=== PATIENT | male | born 1990 | race Caucasian/White ===

== ENCOUNTER 2017-05-20 22:44 | Emergency (ER) | payer OTHER ==
[2017-05-20 23:06] VITALS: BP 129/62; PULSE 79; RESP 20; TEMP 97.1
[2017-05-20] MEDS ORDERED: PROPARACAINE 0.5% OPHTH DROPS 15 ML BTL ONE (23:15)
[2017-05-20] MEDS ORDERED: PROPARACAINE 0.5% OPHTH DROPS 15 ML BTL LEFT EYE STA (23:23)
[2017-05-20] MEDS ORDERED: DIPH,PERTUS(ACELL)TETVAC-LF 0.5 ML VIAL IM ONE (23:24)
[2017-05-20] MEDS ORDERED: TOBRAMYCIN 0.3% OPHTH DROPS 5 ML BTL LEFT EYE STA (23:26)
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
== END 2017-05-20 23:59 | disposition home or self-care (01) ==
LOC: EC 22:44
DX: S05.02XA Injury of conjunctiva and corneal abrasion without foreign body, left eye, initial encounter (principal); F17.200 Nicotine dependence, unspecified, uncomplicated; Z23 Encounter for immunization; Z88.0 Allergy status to penicillin; W51.XXXA Accidental striking against or bumped into by another person, initial encounter
CPT/HCPCS: 90471; 90715; 99283

== ENCOUNTER 2017-07-15 23:51 | Emergency (ER) | payer OTHER ==
[2017-07-16] VITALS: BP 107/61; PULSE 58; RESP 16; TEMP 97.7
[2017-07-16] MEDS ORDERED: PROPARACAINE 0.5% OPHTH DROPS 15 ML BTL BOTH EYES STA (00:46)
[2017-07-16] MEDS ORDERED: TOBRAMYCIN 0.3% OPHTH DROPS 5 ML BTL LEFT EYE STA (01:04)
--- NOTE | 2017-07-16 01:07 | ED ---
ENT HPI - General Chief complaint: ENT Stated complaint: Eye Problem Time Seen by Provider: 07/16/17 00:28 Source: patient, RN notes reviewed, old records reviewed, Caregiver Mode of arrival: ambulatory Limitations: no limitations - History of Present Illness Initial comments: 19 year old male with one day of left eye pain and irriation after scratching eye on pillow case while in bed. Patient reports that vision is intact, does not wear contacts or glasses. History of corneal abrasions before. Denies any foreign body to eye. - Related Data Home Medications Medication Instructions Recorded Confirmed No Known Home Medications [No 05/01/16 05/01/16 Known Home Medications] Allergies Allergy/AdvReac Type Severity Reaction Status Date / Time amoxicillin Allergy Unknown Verified 07/16/17 00:00 Penicillins Allergy Unknown Verified 07/16/17 00:00 Review of Systems ROS Statement: Those systems with pertinent positive or pertinent negative responses have been documented in the HPI. ROS Other: All systems not noted in ROS Statement are negative. Constitutional: Denies: fever, chills Eyes: Reports: eye pain (left) ENT: Denies: ear pain, throat pain Respiratory: Denies: cough Cardiovascular: Denies: chest pain Endocrine: Denies: fatigue Gastrointestinal: Denies: abdominal pain Genitourinary: Denies: urgency Musculoskeletal: Reports: as per HPI. Denies: back pain Skin: Denies: rash Past Medical History Past Medical History: Asthma History of Any Multi-Drug Resistant Organisms: None Reported Past Surgical History: No Surgical Hx Reported Past Psychological History: Bipolar Smoking Status: Current every day smoker Past Alcohol Use History: Occasional Past Drug Use History: None Reported General Exam - General Exam Comments Initial Comments: Well appearing 26 year old male, no distress. Limitations: no limitations General appearance: alert, in no apparent distress Head exam: Present: atraumatic, normocephalic, normal inspection Eye exam: Present: normal appearance, PERRL, EOMI, conjunctival injection (left eye infection, and evidence of corneal abrasion at 7 oclock on flourescein eye exam. ). Absent: scleral icterus, periorbital swelling ENT exam: Present: normal exam, mucous membranes moist Neck exam: Present: normal inspection. Absent: tenderness, meningismus, lymphadenopathy Respiratory exam: Present: normal lung sounds bilaterally. Absent: respiratory distress, wheezes, rales, rhonchi, stridor Cardiovascular Exam: Present: regular rate, normal rhythm, normal heart sounds. Absent: systolic murmur, diastolic murmur, rubs, gallop, clicks GI/Abdominal exam: Present: soft, normal bowel sounds. Absent: distended, tenderness, guarding, rebound, rigid Back exam: Present: normal inspection Neurological exam: Present: alert, oriented X3, CN II-XII intact Course Vital Signs 07/15/17 23:57 Temperature 97.7 F Pulse Rate 58 L Respiratory 16 Rate Blood Pressure 107/61 O2 Sat by Pulse 97 Oximetry Medical Decision Making - Medical Decision Making Pleasant 26 year old male with corneal abrasion at left eye at 7 oclock position. Patient vision acuity intact. Patient started on tobramycin drops and advised to follow up with optho if symptoms perisist. REturn parameters discussed. Disposition Clinical Impression: Injury of conjunctiva and corneal abrasion of left eye w/o FB Disposition: HOME SELF-CARE Condition: Good Instructions: Corneal Abrasion (ED) Additional Instructions: Apply eyedrops to eye every 4 hours for the next 3 day. Return to emergency department if any alarming signs or symptoms occur. Follow up electro winning operator symptoms continue persist after one to 2 days. Referrals: None,Stated [Primary Care Provider] - 1-2 days Ina Tamez MD [STAFF PHYSICIAN] - 1-2 days Abundio Be MD [STAFF PHYSICIAN] - 1-2 days Time of Disposition: 01:05
== END 2017-07-16 01:23 | disposition home or self-care (01) ==
LOC: EC 23:51
DX: S05.02XA Injury of conjunctiva and corneal abrasion without foreign body, left eye, initial encounter (principal); F17.200 Nicotine dependence, unspecified, uncomplicated; Z88.0 Allergy status to penicillin; X58.XXXA Exposure to other specified factors, initial encounter
CPT/HCPCS: 99283

== ENCOUNTER 2020-03-01 14:00 | Inpatient (IN) | payer MEDICAID, OTHER ==
--- NOTE | 2020-03-01 15:42 | ED ---
General Adult HPI <Richard Martinez - Last Filed: 03/01/20 20:17> - General Source: patient, RN notes reviewed, old records reviewed Mode of arrival: ambulatory Limitations: no limitations <Kwadwo Renee - Last Filed: 03/01/20 22:04> - General Chief complaint: Psychiatric Symptoms Stated complaint: Mental Health Time Seen by Provider: 03/01/20 14:12 - History of Present Illness Initial comments: 29-year-old male patient presents to ED for evaluation of mental health. Patient port that he has been hearing voices which are singing things to him. Denies any suicidal ideations at this time. Denies any homicidal ideations. States that he has not anything hurt himself. Denies any other physical com plaints. States that he has been on psychiatric medications in the past. Declines if he is taking any at this time. (Kwadwo Renee) - Related Data Home Medications Medication Instructions Recorded Confirmed No Known Home Medications 05/01/16 03/01/20 Allergies Allergy/AdvReac Type Severity Reaction Status Date / Time amoxicillin Allergy Unknown Verified 03/01/20 20:37 Penicillins Allergy Unknown Verified 03/01/20 20:37 tomato Allergy Unknown Verified 03/01/20 20:37 Review of Systems ROS Other: All systems not noted in ROS Statement are negative. <JuanRichard - Last Filed: 03/01/20 20:17> ROS Other: All systems not noted in ROS Statement are negative. <Kwadwo Renee - Last Filed: 03/01/20 22:04> ROS Statement: Those systems with pertinent positive or pertinent negative responses have been documented in the HPI. Past Medical History Past Medical History: Asthma History of Any Multi-Drug Resistant Organisms: None Reported Past Surgical History: No Surgical Hx Reported Past Psychological History: Bipolar Smoking Status: Current every day smoker Past Alcohol Use History: Occasional Past Drug Use History: None Reported <Kwadwo Renee - Last Filed: 03/01/20 22:04> General Exam Limitations: no limitations <Kwadwo Renee - Last Filed: 03/01/20 22:04> - General Exam Comments Initial Comments: Constitutional: NAD, AOX3, Pt has pleasant affect. HEENT: NC/AT, trachea midline, neck supple, no lymphadenopathy. Posterior phary nx non erythematous, without exudates. External ears appear normal, without discharge. Mucous membranes moist. Eyes PERRLA, EOM intact. There is no scleral icterus. No pallor noted. Cardiopulmonary: RRR, no murmurs, rubs or gallops, no JVD noted. Lungs CTAB in anterior and posterior wesley. No peripheral edema. Abdominal exam: Abdomen soft and non-distended. Abdomen non-tender to palpation in all 4 quadrants. Bowel sounds active in LLQ. No hepatosplenomegaly. No ecchymosis Neuro: CN II-XII intact. No nuchal rigidity. No raccon eyes, no hull sign, no hemotympanum. No cervical spinal tenderness. MSK: Full active ROM in upper and lower extremities, 5/5 stregnth. (Kwadwo Renee) Course Vital Signs 03/01/20 03/01/20 14:06 21:54 Temperature 98.3 F 98.3 F Pulse Rate 77 55 L Respiratory 16 18 Rate Blood Pressure 122/80 105/60 O2 Sat by Pulse 95 96 Oximetry Medical Decision Making <Richard Martinez - Last Filed: 03/01/20 20:17> <Kwadwo Renee - Last Filed: 03/01/20 22:04> - Medical Decision Making Patient was seen by mental health services with plans for admission. Patient did try to escape from the emergency department. Patient reevaluated by myself, Dr. Martinez. Patient admits to having hallucinations and being off his medications. Positive clinical certificate completed. Patient appears paranoid and is receptive to receiving medications at this time. (Richard Martinez) 29-year-old male patient visiting for psychiatric evaluation. They felt some stable, afebrile. Physical exam didn't display acute pathology. Patient did try to elope from urgency department. Patient did suffer a small abrasion to his nose and knee hit the palmar aspect of his hand on the wall. Patient reports he has some very mild pain on the medial aspect of the hand. No snuffbox tenderness. Full active range of motion. Plain film was negative. Patient tetanus was updated. Patient will be admitted for psychiatric evaluation. Case discussed with Dr. Martinez (Kwadwo Renee) - Lab Data Lab Results 03/01/20 Range/Units 16:45 Urine Opiates Screen Not Detected (NotDetected) Ur Oxycodone Screen Not Detected (NotDetected) Urine Methadone Screen Not Detected (NotDetected) Ur Propoxyphene Screen Not Detected (NotDetected) Ur Barbiturates Screen Not Detected (NotDetected) U Tricyclic Antidepress Not Detected (NotDetected) Ur Phencyclidine Scrn Not Detected (NotDetected) Ur Amphetamines Screen Not Detected (NotDetected) U Methamphetamines Scrn Not Detected (NotDetected) U Benzodiazepines Scrn Not Detected (NotDetected) Urine Cocaine Screen Not Detected (NotDetected) U Marijuana (THC) Screen Detected H (NotDetected) Disposition <Richard Martinez - Last Filed: 03/01/20 20:17> Is patient prescribed a controlled substance at d/c from ED?: No <Kwadwo Renee - Last Filed: 03/01/20 22:04> Clinical Impression: Psychiatric disorder Disposition: ADMITTED IP TO THIS HOSP Condition: Serious
[2020-03-01 17:17] LABS: Amphetamine Screen,Urine Not Detected (NotDetected); Barbiturate Screen,Urine Not Detected (NotDetected); Benzodiazepines Screen,Urine Not Detected (NotDetected); Cocaine Screen,Urine Not Detected (NotDetected); Methadone Screen, Urine Not Detected (NotDetected); Opiate Screen,Urine Not Detected (NotDetected); Oxycodone Screen, Urine Not Detected (NotDetected); Phencyclidine Screen,Urine Not Detected (NotDetected); Tricyclic Antidepressant,Urine Not Detected (NotDetected); Urn Cannabinoid Scrn Detected (NotDetected)
[2020-03-01] MEDS ORDERED: LORazepam 2 MG/ML INJ IM STA (20:14)
[2020-03-01] MEDS ORDERED: DIPH,PERTUS(ACELL)TETVAC-LF 0.5 ML VIAL IM ONE (20:53)
--- NOTE | 2020-03-01 21:13 | XR ---
EXAMINATION TYPE: XR hand complete LT DATE OF EXAM: 03/01/2020 COMPARISON: NONE HISTORY: Fifth metacarpal pain TECHNIQUE: 3 views FINDINGS: I see no fracture nor dislocation. Joint spaces are normal. There are no pathologic calcifi cations. IMPRESSION: Negative left hand exam. No evidence of fifth metacarpal fracture.
[2020-03-02] MEDS ORDERED: MAG HYDROX/AL HYDROX/SIMETH 30 ML CUP PO PRN (01:58)
[2020-03-02] MEDS ORDERED: ACETAMINOPHEN TAB 325 MG TAB PO PRN (01:58)
[2020-03-02] MEDS ORDERED: MAGNESIUM HYDROXIDE 2,400 MG/10 ML CUP PO PRN (01:58)
[2020-03-02] MEDS ORDERED: ZIPRASIDONE 20 MG VIAL IM PRN (01:58)
--- NOTE | 2020-03-02 02:45 | P.PN ---
Progress Note - Text Progress Note Date: 03/02/20 patient was inappropriate for evaluation at this time , due to being medicated and sleeping at this time please notify sound physicians when patient is appropriate for evaluation
[2020-03-02] MEDS: NICOTINE 14MG/24HR PATCH TRANSDERM SCH (08:43)
--- NOTE | 2020-03-02 12:17 | P.HP ---
Psychiatric H&P - . H&P Date: 03/02/20 History & Physical: Allergies Allergy/AdvReac Type Severity Reaction Status Date / Time amoxicillin Allergy Unknown Verified 03/01/20 20:37 Penicillins Allergy Unknown Verified 03/01/20 20:37 tomato Allergy Unknown Verified 03/01/20 20:37 Vital Signs Temp 97.7 F 03/02/20 00:15 Pulse 56 L 03/02/20 00:15 Resp 16 03/02/20 00:15 BP 117/70 03/02/20 00:15 Pulse Ox 96 03/01/20 21:54 Intake & Output 03/01/20 03/02/20 03/02/20 18:59 06:59 18:59 Weight 58.967 kg Laboratory Last Values Urine Opiates Screen Not Detected (NotDetected) 03/01/20 16:45 Ur Oxycodone Screen Not Detected (NotDetected) 03/01/20 16:45 Urine Methadone Screen Not Detected (NotDetected) 03/01/20 16:45 Ur Propoxyphene Screen Not Detected (NotDetected) 03/01/20 16:45 Ur Barbiturates Screen Not Detected (NotDetected) 03/01/20 16:45 U Tricyclic Antidepress Not Detected (NotDetected) 03/01/20 16:45 Ur Phencyclidine Scrn Not Detected (NotDetected) 03/01/20 16:45 Ur Amphetamines Screen Not Detected (NotDetected) 03/01/20 16:45 U Methamphetamines Scrn Not Detected (NotDetected) 03/01/20 16:45 U Benzodiazepines Scrn Not Detected (NotDetected) 03/01/20 16:45 Urine Cocaine Screen Not Detected (NotDetected) 03/01/20 16:45 U Marijuana (THC) Screen Detected (NotDetected) H 03/01/20 16:45 03/02/20 12:10 IDENTIFYING DATA: Patient is a 29-year-old male currently lives in a trailer in his uncle's house and has 2 boys and works at a car [employer]. HPI: Patient presented to the hospital yesterday with complaints of auditory hallucinations claiming that things were singing to him as per ER report and also claimed that he has been off his medications. Patient allegedly tried to escape from the ER. His UDS was positive for marijuana. Patient was petitioned by EPS nurse stating that patient was delusional and having auditory or visual hallucinations and also a harm to self and others. Patient was seen today by radio script writer and was directable and agreeable to speak in the office. Patient was responding to internal stimuli had significant thought blocking and appeared to be confused at times. He answered some questions inappropriately and was bizarre. He appeared to have poor hygiene and grooming. He states that he is here for "mental problems" and began to speak about his cousin's birthday and speaking about songs. He has poor insight into his condition and endorsed paranoia during the interview claiming that he felt other people were out to get him and that he'll be in the hospital "forever". He was tearful and when asked why he states that he was thinking about his sons. He states that his mood is "up and down" and states that his sleep is poor and has been having several dreams lately. Patient denies any suicidal or homicidal ideations intent or plan. At this time patient denies any auditory or visual hallucinations. Patient denies any flight of ideas racing thoughts and increased in goal directed behavior. Patient admits to using marijuana daily and alcohol occasionally. He admits to smoking cigarettes daily. PAST PSYCHIATRIC HISTORY: Patient states that he has a history of bipolar disorder and ADHD. He claims that he was last hospitalized in [place] one year ago. Patient denies being on any psychiatric medications. Patient denies any psychiatric outpatient follow-up. Patient denies any history of suicide attempts in the past. 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 He admits to having one felony for selling marijuana and also claims that he has several misdemeanors which she did not go into detail about. MENTAL STATUS EXAM: General Appearance: Patient appears to be thin, older than stated age is alert, difficult to redirect and responding to internal stimuli. Patient appears to have poor hygiene and grooming. Behavior: Patient is seated without any agitated behavior. Speech: Patient's speech is fluent and nonpressured. Slow to respond at times. Mood/Affect: Patient reports their mood is "up and down", affect is congruent and tearful at times. Suicidality/Homicidality: Patient denies having any homicidal ideation intent or plan. Denies any suicidal ideations intent or plan Perceptions: Patient denies any visual hallucinations and denies any auditory hallucinations Though content/process: Patient is concrete, illogical at times and bizarre. Memory and concentration: AOX2, does not know the date, poor attention span. Cannot spell "WORLD" backwards Judgment and insight: poor STRENGTHS/WEAKNESSES: strength is that patient is resilient. Weakness is that patient has poor judgment INTELLECT: average IMPRESSIONS: Schizoaffective disorder, unspecified Cannabis abuse Nicotine dependence PLAN: -Patient is admitted under voluntary status to [facility] for stabilization of psych iatric symptoms and safety. Patient signed adult voluntary form and medication consent and is placed in patient's chart. -Medications : Will start patient on trazodone 50 mg daily at bedtime for mood /insomnia, Invega by mouth 3 mg daily for mood stabilization/psychosis. -Ativan and Geodon PRN for agitation/aggression -Patient was counselled on substance abuse and desired to cut back on use -Patient was informed of the risks, benefits and side effects of the medication and patient verbally consented to taking the medications. Patient signed med consent form and was placed in chart. -Internal Medicine consult to perform medical evaluation and physical. -NRT - nicotine patch -SW on board for discharge planning. Encourage patient to participate in groups to work on coping skills.
[2020-03-02] MEDS: PALIPERIDONE 3 MG TAB.ER.24 PO SCH (12:28)
[2020-03-02] MEDS: traZODone HCL 50 MG TAB PO SCH (20:56)
[2020-03-03] MEDS: LORazepam 1 MG TAB PO PRN (06:53)
[2020-03-03] MEDS: NICOTINE 14MG/24HR PATCH TRANSDERM SCH (08:46)
[2020-03-03] MEDS: PALIPERIDONE 3 MG TAB.ER.24 PO SCH (08:46)
[2020-03-03 10:38] LABS: Basophils % (A) 0 %; Eosinophils # (A) 0.1 k/uL (0-0.7); Eosinophils % (A) 2 %; HCT 45.6 % (39.0-53.0); HGB 14.6 gm/dL (13.0-17.5); Lymphocytes # (A) 1.7 k/uL (1.0-4.8); Lymphocytes % (A) 23 %; MCH 30.3 pg (25.0-35.0); MCHC 32.1 g/dL (31.0-37.0); MCV 94.5 fL (80.0-100.0); Mean Platelet Volume 8.1; Monocytes # (A) 0.4 k/uL (0-1.0); Monocytes % (A) 6 %; Neutrophils # (A) 4.9 k/uL (1.3-7.7); Neutrophils % (A) 67 %; Platelet Count 178 k/uL (150-450); RBC 4.83 m/uL (4.30-5.90); RDW 12.9 % (11.5-15.5); WBC 7.3 k/uL (3.8-10.6)
[2020-03-03 11:05] LABS: ALT 16 U/L (4-49); AST 27 U/L (17-59); African American GFR (CKD) >90 (>60 ml/min/1.73 sqM); Albumin 4.5 g/dL (3.5-5.0); Alkaline Phosphatase 72 U/L (38-126); Anion Gap 8 mmol/L; Blood Urea Nitrogen 16 mg/dL (9-20); Calcium 9.6 mg/dL (8.4-10.2); Carbon Dioxide 28 mmol/L (22-30); Chloride 104 mmol/L (98-107); Cholesterol 120 mg/dL (<200); Glucose 59 mg/dL (74-99); HDL Cholesterol 41 mg/dL (40-60); LDL Cholesterol,Calculated 61 mg/dL (0-99); Non-African American GFR(CKD) >90 (>60 ml/min/1.73 sqM); Potassium 4.5 mmol/L (3.5-5.1); Sodium 140 mmol/L (137-145); Total Bilirubin 0.9 mg/dL (0.2-1.3); Total Protein 7.2 g/dL (6.3-8.2); Triglycerides 89 mg/dL (<150)
--- NOTE | 2020-03-03 11:43 | P.PN ---
Progress Note - Text Progress Note Date: 03/03/20 Interval History: Patient was seen laying down in his bed this morning and was directable and ag reeable to speak with display card writer in the office. Vision continues to appear to have poor insight and poor hygiene and grooming. He was more cooperative today with brighter and more appropriate however continues to appear to be confused at times. He was slow to respond. She states that he has been taking his medications and denies any side effects or problems with him at this time. He states that his mood has been gradually improving. He was not endorsing any delusions or paranoia today. He spoke about his roommate "staring at me weird" in the middle of the night and claims to have walked the hallways and had a difficult time sleeping. He states that he has been going to some groups. At this time patient denies any suicidal or homical ideations, intent or plan. Patient denies any auditory, visual hallucinations and denies any paranoia or delusions. Patient denies any side effects from the medications and has been compliant with meds. Mental Status Exam: General Appearance: Patient appears to be thin, older than stated age is alert, more directable today, attempts to cooperate. Patient appears to have poor hygiene and grooming. Behavior: Patient is seated without any agitated behavior. Confused at times. Speech: Patient's speech is fluent and nonpressured. Slow to respond Mood/Affect: Patient reports their mood is "better", affect is congruent Suicidality/Homicidality: Patient denies having any homicidal ideation intent or plan. Denies any suicidal ideations intent or plan Perceptions: Patient denies any visual hallucinations and denies any auditory hallucinations Though content/process: Patient is concrete, illogical at times, more organized today. Memory and concentration: AOX2, does not know the date, poor attention span Judgment and insight: poor, mildly improving. Assessment Schizoaffective disorder, unspecified Cannabis abuse Nicotine dependence Plan: -Patient continues to meet criteria for inpatient psychiatric admission for symptom stabilization and safety. Patient has signed adult voluntary form and medication consent and was placed in patient's chart. -Medications: Continue trazodone 50 mg nightly for mood/insomnia, increased paliperidone by mouth 6 mg daily for mood stabilization/psychosis. -When necessary Ativan and Geodon for agitation/aggression. -NRT - nicotine patch -SW on board for discharge planning. Encouraged the patient to participate in milieu. Likely discharge in 2-3 days.
[2020-03-03] MEDS: traZODone HCL 50 MG TAB PO SCH (21:31)
[2020-03-03 21:53] LABS: Hemoglobin A1C 5.2 % (4.0-6.0)
[2020-03-04] MEDS: LORazepam 1 MG TAB PO PRN (00:35)
[2020-03-04] MEDS: PALIPERIDONE 6 MG TAB.ER.24 PO SCH (09:22)
[2020-03-04] MEDS: NICOTINE 14MG/24HR PATCH TRANSDERM SCH (09:22)
--- NOTE | 2020-03-04 10:13 | P.PN ---
Progress Note - Text Progress Note Date: 03/04/20 Interval History: Patient was seen taking part in group this morning and was directable and agre eable to speak with entry writer in the office. Patient appeared to have mild improvement in terms of his insight and judgment. Mild improvement in hygiene and grooming. He states that his mood has been gradually improving on the current medications. He states that he is gaining a lot of benefit from going to groups and has been talking to others on the unit. He states that he has been taking his medications and denies any side effects or problems with him at this time. He states that he continues to feel "up and down" at times and feel as these "not stable yet". He was not endorsing any delusions or paranoia today. He states that he had poor sleep last night and had several awakenings. At this time patient denies any suicidal or homical ideations, intent or plan. Patient denies any auditory, visual hallucinations and denies any paranoia or delusions. Patient denies any side effects from the medications and has been compliant with meds. Mental Status Exam: General Appearance: Patient appears to be thin, older than stated age is alert, more directable today, attempts to cooperate. Patient appears to have improving hygiene and grooming. Behavior: Patient is seated without any agitated behavior. Confused at times. Speech: Patient's speech is fluent and nonpressured. Mood/Affect: Patient reports their mood is "up and down", affect is congruent Suicidality/Homicidality: Patient denies having any homicidal ideation intent or plan. Denies any suicidal ideations intent or plan Perceptions: Patient denies any visual hallucinations and denies any auditory hallucinations Though content/process: Patient is concrete, illogical at times, more organized today. Memory and concentration: AOX3, improving attention span Judgment and insight: poor, mildly improving. Assessment Schizoaffective disorder, unspecified Cannabis abuse Nicotine dependence Plan: -Patient continues to meet criteria for inpatient psychiatric admission for symptom stabilization and safety. Patient has signed adult voluntary form and medication consent and was placed in patient's chart. -Medications: Continue trazodone 50 mg nightly for mood/insomnia, continue with paliperidone by mouth 6 mg daily for mood stabilization/psychosis. -When necessary Ativan and Geodon for agitation/aggression. -NRT - nicotine patch -SW on board for discharge planning. Encouraged the patient to participate in milieu. Likely discharge Saturday if patient continues to improve over the weekend. delinquency prevention social worker to look into patient's housing and if he can return back to his uncle's property.
[2020-03-04] MEDS: traZODone HCL 50 MG TAB PO SCH (21:29)
[2020-03-05] MEDS: NICOTINE 14MG/24HR PATCH TRANSDERM SCH (08:26)
[2020-03-05] MEDS: PALIPERIDONE 6 MG TAB.ER.24 PO SCH (08:26)
--- NOTE | 2020-03-05 12:12 | P.PN ---
Progress Note - Text Progress Note Date: 03/05/20 Interval history: Patient is seen in cross coverage today. He reports that he was upset a little bit earlier, relays that he felt he was being pushed out of group so he left. He does describe that his mood is doing better today. He seems to be tolerating his psychotropic medications okay. Mental status exam: He is alert and cooperative with the interview. His speech is not rapid or pressured. His thought processes overall are organized. He denies any hallucinations. He does not display any agitation. He denies any thoughts of harm to self or others. Plan: Patient will be maintained on current psychotropic medication regimen. Continue to monitor for any medication side effects and monitor his ongoing response to treatment.
[2020-03-05] MEDS: traZODone HCL 50 MG TAB PO SCH (20:56)
[2020-03-06] MEDS: NICOTINE 14MG/24HR PATCH TRANSDERM SCH (08:03)
[2020-03-06] MEDS: PALIPERIDONE 6 MG TAB.ER.24 PO SCH (08:04)
--- NOTE | 2020-03-06 13:43 | P.PN ---
Progress Note - Text Progress Note Date: 03/06/20 Interval history: Patient is seen in cross [facility] again today. He says he slept about 12 hours last night. He does state that he was sleeping with his blanket over his face/head and felt the blanket it sounds like when he inhaled, we talked about him not covering his face/head with the blanket. He denies any thoughts of harm to self or others. He does seem to be eating well. He does talk about having some anxiety just earlier related to seeing somebody fall but he is doing better now. Mental status exam: He is alert and cooperative with the interview. Her speech is fluent not rapid or pressured. His thought processes are organized. His mood seems to be stable compared to yesterday. He denies any thoughts of harm to self or others. He does not display any agitation. He has not verbalize any hallucinations. Plan: Patient will be maintained on current psychotropic medication regimen. Continue to monitor for any medication side effects monitor his ongoing response to treatment.
[2020-03-06] MEDS: traZODone HCL 50 MG TAB PO SCH (21:00)
[2020-03-07 06:50] VITALS: BP 110/74; PULSE 62; RESP 17; TEMP 97.9
[2020-03-07] MEDS: PALIPERIDONE 6 MG TAB.ER.24 PO SCH (08:20)
[2020-03-07] MEDS: NICOTINE 14MG/24HR PATCH TRANSDERM SCH (08:20)
--- NOTE | 2020-03-07 09:48 | P.DS ---
Providers Date of admission: 03/01/20 21:17 Expected date of discharge: 03/07/20 Attending physician: Hernando Ardon Consults: 03/02/20 01:58 Consult Physician Routine Consulting Provider: Deepa Lopez Consult Reason/Comments: medical management Do you want consulting provider notified?: Yes Primary care physician: Stated None - Discharge Diagnosis(es) (1) Schizoaffective disorder Current Visit: Yes Status: Acute Priority: High (2) Nicotine dependence Current Visit: Yes Status: Acute Priority: Low (3) Cannabis abuse Current Visit: Yes Status: Acute Priority: Medium Hospital Course: Admission HPI: Patient is a 29-year-old male currently lives in a trailer in his uncle's house and has 2 boys and works at a car [employer]. Patient presented to the hospital yesterday with complaints of auditory hallucinations claiming that things were singing to him as per ER report and also claimed that he has been off his medications. Patient allegedly tried to escape from the ER. His UDS was positive for marijuana. Patient was petitioned by EPS nurse stating that patient was delusional and having auditory or visual hallucinations and also a harm to self and others. Patient was seen today by food writer and was directable and agreeable to speak in the office. Patient was responding to internal stimuli had significant thought blocking and appeared to be confused at times. He answered some questions inappropriately and was bizarre. He appeared to have poor hygiene and grooming. He states that he is here for "mental problems" and began to speak about his cousin's birthday and speaking about songs. He has poor insight into his condition and endorsed paranoia during the interview claiming that he felt other people were out to get him and that he'll be in the hospital "forever". He was tearful and when asked why he states that he was thinking about his sons. He states that his mood is "up and down" and states that his sleep is poor and has been having several dreams lately. Patient denies any suicidal or homicidal ideations intent or plan. At this time patient denies any auditory or visual hallucinations. Patient denies any flight of ideas racing thoughts and increased in goal directed behavior. Patient admits to using marijuana daily and alcohol occasionally. He admits to smoking cigarettes daily. Hospital course: Upon admission to the unit patient was initially was paranoid, psychotic and labile. Patient was however directable and agreeable to commence treatment. Patient got along well with other patients on the unit and followed unit protocol. Patient was compliant with the medications and denied any side effects throughout hospital course. Patient was started on paliperidone by mouth and titrated up to a dose of 6 mg daily for mood stabilization/psychosis. Patient was also started on trazodone 50 mg nightly for mood/insomnia. Patient spoke of his stressors and engaged in therapy both group and individual. Patient was also seen by medical team for history and physical exam. Throughout the course of the hospitalization patient gradually improved with regards to mood, psychosis/paranoia, sleep and became future oriented with improved insight and judgment. On the day of discharge patient denied any suicidal or homicidal ideations intent or plan denied any auditory or visual hallucinations. Patient endorsed wanting to live for his health and family. The patient denied any access to guns or weapons. Patient denied any paranoia and did not endorse any delusions. Patient does have a significant history of substance abuse and was counseled on abstaining from all substances including alcohol and marijuana. Patient was also counseled on the medications and need for regular compliance and was encouraged to follow-up with their outpatient appointment for mental health and also for primary care. Prior to discharge a family meeting will be arranged by health care social worker to answer any questions and ensure safety upon discharge. Mental status exam: General Appearance: Patient appears to be thin, stated age is alert, pleasant, and cooperative. Patient is in no acute distress and has fair hygiene and grooming Behavior: Patient is calmly seated without any agitated behavior. Speech: Patient's speech is fluent and nonpressured. Mood/Affect: Patient reports their mood is "much better", affect is congruent and euthymic. Suicidality/Homicidality: Patient denies having any suicidal or homicidal ideation intent or plan. Perceptions: Patient denies any auditory or visual hallucinations. Though content/process: There is no evidence of any delusional thought content and thought process is linear and goal-directed. more future oriented Memory and concentration: AOX3, grossly intact for the purposes of this session. Can spell "WORLD" backwards correctly. Judgment and insight: Improved with guarded prognosis Impression: Schizoaffective disorder, unspecified Cannabis abuse Nicotine dependence Plan: -Continue with discharge today as patient has improved and stabilized psychiatrically and is not currently an imminent threat to himself and/or others. -Continue medications: Paliperidone 6 mg daily for mood stabilization/psychosis. Continue with trazodone 50 mg nightly for mood/insomnia. -Patient was counseled on the need for medication compliance and appropriate follow-up at mental health and also primary care for medical issues. Patient verbalized understanding and agreed. -Social work to arrange for and conduct family meeting to ensure safety upon discharge and answer any questions/concerns. foster care social worker to reach out to patient's family and uncle to ensure that patient will be allowed back to live on their property. Social work also to arrange for patients follow up appointments for psychiatric care along with follow up with primary care provider. -Patient counseled on abstaining from recreational drugs and marijuana and alcohol. Was informed/educated on the adverse effects on their physical and mental health. Patient verbally agreed and understood. Patient was offered [facility] bstance abuse treatment however declined at this time. -Patient was instructed to return to the hospital or seek immediate medical care if their psychiatric or medical symptoms do worsen or reoccur. Allergies Allergy/AdvReac Type Severity Reaction Status Date / Time amoxicillin Allergy Unknown Verified 03/01/20 20:37 Penicillins Allergy Unknown Verified 03/01/20 20:37 tomato Allergy Unknown Verified 03/01/20 20:37 Laboratory Results WBC 7.3 k/uL (3.8-10.6) 03/03/20 10:00 RBC 4.83 m/uL (4.30-5.90) 03/03/20 10:00 Hgb 14.6 gm/dL (13.0-17.5) 03/03/20 10:00 Hct 45.6 % (39.0-53.0) 03/03/20 10:00 MCV 94.5 fL (80.0-100.0) 03/03/20 10:00 MCH 30.3 pg (25.0-35.0) 03/03/20 10:00 MCHC 32.1 g/dL (31.0-37.0) 03/03/20 10:00 RDW 12.9 % (11.5-15.5) 03/03/20 10:00 Plt Count 178 k/uL (150-450) 03/03/20 10:00 Neutrophils % 67 % 03/03/20 10:00 Lymphocytes % 23 % 03/03/20 10:00 Monocytes % 6 % 03/03/20 10:00 Eosinophils % 2 % 03/03/20 10:00 Basophils % 0 % 03/03/20 10:00 Neutrophils # 4.9 k/uL (1.3-7.7) 03/03/20 10:00 Lymphocytes # 1.7 k/uL (1.0-4.8) 03/03/20 10:00 Monocytes # 0.4 k/uL (0-1.0) 03/03/20 10:00 Eosinophils # 0.1 k/uL (0-0.7) 03/03/20 10:00 Basophils # 0.0 k/uL (0-0.2) 03/03/20 10:00 Sodium 140 mmol/L (137-145) 03/03/20 10:00 Potassium 4.5 mmol/L (3.5-5.1) 03/03/20 10:00 Chloride 104 mmol/L (98-107) 03/03/20 10:00 Carbon Dioxide 28 mmol/L (22-30) 03/03/20 10:00 Anion Gap 8 mmol/L 03/03/20 10:00 BUN 16 mg/dL (9-20) 03/03/20 10:00 Creatinine 0.93 mg/dL (0.66-1.25) 03/03/20 10:00 Est GFR (CKD-EPI)AfAm >90 (>60 ml/min/1.73 sqM) 03/03/20 10:00 Est GFR (CKD-EPI)NonAf >90 (>60 ml/min/1.73 sqM) 03/03/20 10:00 Glucose 59 mg/dL (74-99) L 03/03/20 10:[address] Glu mg/dL 103 03/03/20 10:00 Hemoglobin A1c 5.2 % (4.0-6.0) 03/03/20 10:00 Calcium 9.6 mg/dL (8.4-10.2) 03/03/20 10:00 Total Bilirubin 0.9 mg/dL (0.2-1.3) 03/03/20 10:00 AST 27 U/L (17-59) 03/03/20 10:00 ALT 16 U/L (4-49) 03/03/20 10:00 Alkaline Phosphatase 72 U/L (38-126) 03/03/20 10:00 Total Protein 7.2 g/dL (6.3-8.2) 03/03/20 10:00 Albumin 4.5 g/dL (3.5-5.0) 03/03/20 10:00 Triglycerides 89 mg/dL (<150) 03/03/20 10:00 Cholesterol 120 mg/dL (<200) 03/03/20 10:00 LDL Cholesterol, Calc 61 mg/dL (0-99) 03/03/20 10:00 HDL Cholesterol 41 mg/dL (40-60) 03/03/20 10:00 TSH 1.890 mIU/L (0.465-4.680) 03/03/20 10:00 Urine Opiates Screen Not Detected (NotDetected) 03/01/20 16:45 Ur Oxycodone Screen Not Detected (NotDetected) 03/01/20 16:45 Urine Methadone Screen Not Detected (NotDetected) 03/01/20 16:45 Ur Propoxyphene Screen Not Detected (NotDetected) 03/01/20 16:45 Ur Barbiturates Screen Not Detected (NotDetected) 03/01/20 16:45 U Tricyclic Antidepress Not Detected (NotDetected) 03/01/20 16:45 Ur Phencyclidine Scrn Not Detected (NotDetected) 03/01/20 16:45 Ur Amphetamines Screen Not Detected (NotDetected) 03/01/20 16:45 U Methamphetamines Scrn Not Detected (NotDetected) 03/01/20 16:45 U Benzodiazepines Scrn Not Detected (NotDetected) 03/01/20 16:45 Urine Cocaine Screen Not Detected (NotDetected) 03/01/20 16:45 U Marijuana (THC) Screen Detected (NotDetected) H 03/01/20 16:45 Vital Signs Temp 97.9 F 03/07/20 06:49 Pulse 62 03/07/20 06:49 Resp 17 03/07/20 06:49 BP 110/74 03/07/20 06:49 Pulse Ox 98 03/07/20 06:49 Intake & Output 03/06/20 03/07/2020 18:59 06:59 18:59 Weight 55.7 kg Patient Condition at Discharge: Stable Plan - Discharge Summary New Discharge Prescriptions: New traZODone HCL [Desyrel] 50 mg PO HS 30 Days tab Nicotine 14Mg/24Hr Patch [Habitrol] 1 patch TRANSDERM DAILY 14 Days patch Paliperidone [Invega] 6 mg PO DAILY 30 Days tab.er.24 Acetaminophen Tab [Tylenol] 650 mg PO Q4HR PRN tab PRN Reason: Pain/Discomfort Discharge Medication List Acetaminophen Tab [Tylenol] 650 mg PO Q4HR PRN tab 03/07/20 [Rx] Nicotine 14Mg/24Hr Patch [Habitrol] 1 patch TRANSDERM DAILY 14 Days patch 03/07/20 [Rx] Paliperidone [Invega] 6 mg PO DAILY 30 Days tab.er.24 03/07/20 [Rx] traZODone HCL [Desyrel] 50 mg PO HS 30 Days tab 03/07/20 [Rx] Follow up Appointment(s)/Referral(s): None,Stated [Primary Care Provider] - 1-2 days Activity/Diet/Wound Care/Special Instructions: Activity and diet as tolerated. Avoid the use of street drugs and alcohol. Take all medications as prescribed. When you are in need of refills on your medications please contact your medical provider and/or outpatient psychiatrist to have this done. Please go to scheduled outpatient appointment for aftercare treatment. If symptoms return or become worse, call the crisis line at and/or go to the nearest emergency room for evaluation Discharge Disposition: HOME SELF-CARE
== END 2020-03-07 13:25 | disposition home or self-care (01) | DRG 885 ==
LOC: EC 14:00 → 3MHU 21:17
PROVIDERS: ADMIT Psychiatry & Neurology Psychiatry; ATTEND Psychiatry & Neurology Psychiatry
DX: F25.9 Schizoaffective disorder, unspecified (principal); F31.9 Bipolar disorder, unspecified; F12.10 Cannabis abuse, uncomplicated; F17.210 Nicotine dependence, cigarettes, uncomplicated; F90.9 Attention-deficit hyperactivity disorder, unspecified type; G47.00 Insomnia, unspecified; F41.9 Anxiety disorder, unspecified; J45.909 Unspecified asthma, uncomplicated; S00.31XA Abrasion of nose, initial encounter; W22.01XA Walked into wall, initial encounter; Z88.0 Allergy status to penicillin; Z91.018 Allergy to other foods
CPT/HCPCS: 80053; 80061; 80306; 82075; 83036; 84443; 85025; 90471; 90715; 96372; 99285

== ENCOUNTER 2021-04-25 07:22 | Inpatient (IN) | payer MEDICAID, OTHER ==
--- NOTE | 2021-04-25 07:55 | ED ---
Psych HPI - General Stated Complaint: med refill Time Seen by Provider: 04/25/21 07:38 Source: patient Mode of arrival: ambulatory - History of Present Illness Initial Comments: This is a 30-year-old male with a history of psychiatric problems who states she's been off his medication approximately 2 months she's been hearing voices he states he's not suicidal or homicidal since last night. No fevers chills nausea vomiting sweats he denies any alcohol or other street drugs this time. No other complaints or modifying factors MD Complaint: other - Related Data Home Medications Medication Instructions Recorded Confirmed No Known Home Medications 04/25/21 04/25/21 Allergies Allergy/AdvReac Type Severity Reaction Status Date / Time amoxicillin Allergy Unknown Verified 04/25/21 08:22 Penicillins Allergy Unknown Verified 04/25/21 08:22 tomato Allergy Itching Verified 04/25/21 08:22 Review of Systems ROS Statement: Those systems with pertinent positive or pertinent negative responses have been documented in the HPI. ROS Other: All systems not noted in ROS Statement are negative. Past Medical History Past Medical History: Asthma History of Any Multi-Drug Resistant Organisms: None Reported Past Surgical History: No Surgical Hx Reported Past Psychological History: Bipolar Smoking Status: Current every day smoker Past Alcohol Use History: Occasional Past Drug Use History: Marijuana General Exam - General Exam Comments Initial Comments: This is a well-developed asthenic appearing male who is awake alert oriented 3 Limitations: no limitations General appearance: alert, in no apparent distress Head exam: Present: atraumatic, normocephalic, normal inspection Eye exam: Present: normal appearance, PERRL, EOMI. Absent: scleral icterus, conjunctival injection, periorbital swelling ENT exam: Present: normal exam, mucous membranes moist Neck exam: Present: normal inspection. Absent: tenderness, meningismus, lymphadenopathy Respiratory exam: Present: normal lung sounds bilaterally. Absent: respiratory distress, wheezes, rales, rhonchi, stridor Cardiovascular Exam: Present: regular rate, normal rhythm, normal heart sounds. Absent: systolic murmur, diastolic murmur, rubs, gallop, clicks GI/Abdominal exam: Present: soft, normal bowel sounds. Absent: distended, tenderness, guarding, rebound, rigid Extremities exam: Present: normal inspection, full ROM, normal capillary refill. Absent: tenderness, pedal edema, joint swelling, calf tenderness Back exam: Present: normal inspection, full ROM Neurological exam: Present: alert, oriented X3, CN II-XII intact Psychiatric exam: Present: flat affect Skin exam: Present: warm, dry, intact, normal color. Absent: rash Course Vital Signs 04/25/21 07:26 Temperature 97.8 F Pulse Rate 67 Respiratory 16 Rate Blood Pressure 128/85 O2 Sat by Pulse 99 Oximetry Medical Decision Making - Medical Decision Making The patient was evaluated by the EPS service and will be admitted for inpatient evaluation and treatment - Lab Data Lab Results 04/25/21 Range/Units 08:20 Urine Opiates Screen Not Detected (NotDetected) Ur Oxycodone Screen Not Detected (NotDetected) Urine Methadone Screen Not Detected (NotDetected) Ur Propoxyphene Screen Not Detected (NotDetected) Ur Barbiturates Screen Not Detected (NotDetected) U Tricyclic Antidepress Not Detected (NotDetected) Ur Phencyclidine Scrn Not Detected (NotDetected) Ur Amphetamines Screen Not Detected (NotDetected) U Methamphetamines Scrn Not Detected (NotDetected) U Benzodiazepines Scrn Not Detected (NotDetected) Urine Cocaine Screen Not Detected (NotDetected) U Marijuana (THC) Screen Detected H (NotDetected) Disposition Clinical Impression: Depression Disposition: TRANSFER TO PSYCH HOSP/UNIT Condition: Stable Referrals: None,Stated [Primary Care Provider] - 1-2 days
[2021-04-25 08:53] LABS: Amphetamine Screen,Urine Not Detected (NotDetected); Barbiturate Screen,Urine Not Detected (NotDetected); Benzodiazepines Screen,Urine Not Detected (NotDetected); Cocaine Screen,Urine Not Detected (NotDetected); Methadone Screen, Urine Not Detected (NotDetected); Opiate Screen,Urine Not Detected (NotDetected); Oxycodone Screen, Urine Not Detected (NotDetected); Phencyclidine Screen,Urine Not Detected (NotDetected); Tricyclic Antidepressant,Urine Not Detected (NotDetected); Urn Cannabinoid Scrn Detected (NotDetected)
[2021-04-25] MEDS ORDERED: ACETAMINOPHEN TAB 325 MG TAB PO PRN (16:23)
[2021-04-25] MEDS ORDERED: MAG HYDROX/AL HYDROX/SIMETH 30 ML CUP PO PRN (16:23)
[2021-04-25] MEDS ORDERED: MAGNESIUM HYDROXIDE 2,400 MG/10 ML CUP PO PRN (16:23)
[2021-04-25] MEDS ORDERED: LORazepam 1 MG TAB PO PRN (16:23)
[2021-04-25] MEDS ORDERED: haloperidoL 5 MG TAB PO PRN (16:25)
[2021-04-25] MEDS ORDERED: HALOPERIDOL LACTATE 5 MG/ML 1 ML VIAL IM PRN (16:25)
[2021-04-25] MEDS ORDERED: LORazepam 2 MG/ML INJ IM PRN (16:25)
[2021-04-25] MEDS ORDERED: traZODone HCL 50 MG TAB PO SCH (21:00)
--- NOTE | 2021-04-26 02:55 | P.MDCNMH ---
History of Present Illness H&P Date: 04/25/21 Chief Complaint: Medical evaluation 30-year-old male with no significant past medical history, patient has history of schizophrenia Patient presented due to acute psychosis and noncompliance with his medications Currently denies any medical concerns denies any fevers chills nausea vomiting chest pain trouble breathing abdominal pain changes in bowel or urinary habits Denies tobacco smoking denies alcohol abuse, admits to marijuana Review of Systems Pertinent positives as noted in HPI. All other systems were reviewed and are negative Past Medical History Past Medical History: Asthma History of Any Multi-Drug Resistant Organisms: None Reported Past Surgical History: No Surgical Hx Reported Past Psychological History: Bipolar Smoking Status: Current every day smoker Past Alcohol Use History: Occasional Past Drug Use History: Marijuana - Past Family History Family Family Medical History: No Reported History Medications and Allergies Home Medications Medication Instructions Recorded Confirmed Type No Known Home Medications 04/25/21 04/25/21 History Allergies Allergy/AdvReac Type Severity Reaction Status Date / Time amoxicillin Allergy Unknown Verified 04/25/21 08:22 Penicillins Allergy Unknown Verified 04/25/21 08:22 tomato Allergy Itching Verified 04/25/21 08:22 Physical Exam Vitals: Vital Signs Temp Pulse Pulse Resp BP BP Pulse Ox 04/25/21 16:00 97.7 F 58 L 16 104/71 97 04/25/21 07:26 97.8 F 67 16 128/85 99 Intake and Output 04/25/21 04/25/21 04/26/21 14:59 22:59 06:59 Other: Weight 58.967 kg 54.2 kg Constitutional: No acute distress, conversant, pleasant Eyes: Anicteric sclerae, moist conjunctiva, Pupils equal round reactive to light ENMT: NC/AT Oropharynx clear, no erythema, or exudates Neck: Supple, FROM, no masses, or JVD No carotid bruits No thyromegaly Lungs: Clear to auscultation Clear to percussion Normal respiratory effort, no accessory muscle use Cardiovascular: Heart regular in rate and rhythm, No murmurs, gallops, or rubs No peripheral edema Abdominal: Soft Nontender, no guarding, rebound or rigidity Abdomen moving with respiration Normoactive bowel sounds No hepatomegaly, No splenomegaly No palpable mass No abdominal wall hernia noted Skin: Normal temperature, tone, texture, turgor No induration No subcutaneous nodules No rash, lesions No ulcers Extremities: No digital cyanosis No clubbing Pedal pulses intact and symmetrical Radial pulses intact and symmetrical No calf tenderness Psychiatric: Alert and oriented to person, place and time Neuro Muscles Strength 5/5 in all 4 extremities Sensation to light touch grossly present throughout Cranial nerves II-XII grossly intact No focal sensory deficits Lymphatics: no palpable cervical or supraclavicular , or inguinal lymph nodes Cranial Nerve Examination - Cranial Nerves Cranial Nerve II- Optic: Intact Cranial Nerve III- Oculomotor: Intact Cranial Nerve IV- Trochlear: Intact Cranial Nerve V- Trigeminal: Intact Cranial Nerve - Abducens: Intact Cranial Nerve VII- Facial: Intact Cranial Nerve VIII- Auditory: Intact Cranial Nerve IX- Glossopharyngeal: Intact Cranial Nerve X- Vagus: Intact Cranial Nerve XI- Accessory: Intact Cranial Nerve XII- Hypoglossal: Intact Results Labs: Abnormal Lab Results - Last 24 Hours (Table) 04/25/21 Range/Units 08:20 U Marijuana (THC) Screen Detected H (NotDetected) Assessment and Plan Assessment: Acute psychosis, noncompliant with medications Schizophrenia Management per psych Follow-up labs Thank you for allowing us to participate in the care of this patient. We will follow peripherally. Do not hesitate to contact us with questions. Someone can be reached from the [facility] hospitalist group at all hours of the day at [phone].
[2021-04-26 07:27] LABS: Basophils % (A) 1 %; Eosinophils # (A) 0.2 k/uL (0-0.7); Eosinophils % (A) 2 %; HCT 46.8 % (39.0-53.0); HGB 15.3 gm/dL (13.0-17.5); Lymphocytes # (A) 2.3 k/uL (1.0-4.8); Lymphocytes % (A) 33 %; MCH 30.1 pg (25.0-35.0); MCHC 32.7 g/dL (31.0-37.0); MCV 92.2 fL (80.0-100.0); Mean Platelet Volume 8.1; Monocytes # (A) 0.5 k/uL (0-1.0); Monocytes % (A) 7 %; Neutrophils # (A) 3.8 k/uL (1.3-7.7); Neutrophils % (A) 55 %; Platelet Count 179 k/uL (150-450); RBC 5.08 m/uL (4.30-5.90); RDW 12.5 % (11.5-15.5); WBC 6.8 k/uL (3.8-10.6)
[2021-04-26 07:42] LABS: ALT 11 U/L (4-49); AST 20 U/L (17-59); African American GFR (CKD) >90 (>60 ml/min/1.73 sqM); Albumin 4.6 g/dL (3.5-5.0); Alkaline Phosphatase 76 U/L (38-126); Anion Gap 9 mmol/L; Blood Urea Nitrogen 15 mg/dL (9-20); Calcium 9.5 mg/dL (8.4-10.2); Carbon Dioxide 27 mmol/L (22-30); Chloride 104 mmol/L (98-107); Glucose 83 mg/dL (74-99); Non-African American GFR(CKD) >90 (>60 ml/min/1.73 sqM); Potassium 3.9 mmol/L (3.5-5.1); Sodium 140 mmol/L (137-145); Total Bilirubin 0.5 mg/dL (0.2-1.3); Total Protein 7.1 g/dL (6.3-8.2)
[2021-04-26] MEDS ORDERED: PALIPERIDONE 3 MG TAB.ER.24 PO STA (12:17)
--- NOTE | 2021-04-26 12:18 | P.HP ---
Psychiatric H&P - . H&P Date: 04/26/21 History & Physical: Allergies Allergy/AdvReac Type Severity Reaction Status Date / Time amoxicillin Allergy Unknown Verified 04/25/21 08:22 Penicillins Allergy Unknown Verified 04/25/21 08:22 tomato Allergy Itching Verified 04/25/21 08:22 Vital Signs Temp 98.2 F 04/26/21 06:12 Pulse 78 04/26/21 06:12 Resp 16 04/26/21 06:12 BP 110/58 04/26/21 06:12 Pulse Ox 97 04/25/21 16:00 Intake & Output 04/25/21 04/26/21 04/26/21 18:59 06:59 18:59 Weight 54.2 kg Laboratory Last Values WBC 6.8 k/uL (3.8-10.6) 04/26/21 06:45 RBC 5.08 m/uL (4.30-5.90) 04/26/21 06:45 Hgb 15.3 gm/dL (13.0-17.5) 04/26/21 06:45 Hct 46.8 % (39.0-53.0) 04/26/21 06:45 MCV 92.2 fL (80.0-100.0) 04/26/21 06:45 MCH 30.1 pg (25.0-35.0) 04/26/21 06:45 MCHC 32.7 g/dL (31.0-37.0) 04/26/21 06:45 RDW 12.5 % (11.5-15.5) 04/26/21 06:45 Plt Count 179 k/uL (150-450) 04/26/21 06:45 MPV 8.1 04/26/21 06:45 Neutrophils % 55 % 04/26/21 06:45 Lymphocytes % 33 % 04/26/21 06:45 Monocytes % 7 % 04/26/21 06:45 Eosinophils % 2 % 04/26/21 06:45 Basophils % 1 % 04/26/21 06:45 Neutrophils # 3.8 k/uL (1.3-7.7) 04/26/21 06:45 Lymphocytes # 2.3 k/uL (1.0-4.8) 04/26/21 06:45 Monocytes # 0.5 k/uL (0-1.0) 04/26/21 06:45 Eosinophils # 0.2 k/uL (0-0.7) 04/26/21 06:45 Basophils # 0.0 k/uL (0-0.2) 04/26/21 06:45 Sodium 140 mmol/L (137-145) 04/26/21 06:45 Potassium 3.9 mmol/L (3.5-5.1) 04/26/21 06:45 Chloride 104 mmol/L (98-107) 04/26/21 06:45 Carbon Dioxide 27 mmol/L (22-30) 04/26/21 06:45 Anion Gap 9 mmol/L 04/26/21 06:45 BUN 15 mg/dL (9-20) 04/26/21 06:45 Creatinine 0.98 mg/dL (0.66-1.25) 04/26/21 06:45 Est GFR (CKD-EPI)AfAm >90 (>60 ml/min/1.73 sqM) 04/26/21 06:45 Est GFR (CKD-EPI)NonAf >90 (>60 ml/min/1.73 sqM) 04/26/21 06:45 Glucose 83 mg/dL (74-99) 04/26/21 06:45 Calcium 9.5 mg/dL (8.4-10.2) 04/26/21 06:45 Total Bilirubin 0.5 mg/dL (0.2-1.3) 04/26/21 06:45 AST 20 U/L (17-59) 04/26/21 06:45 ALT 11 U/L (4-49) 04/26/21 06:45 Alkaline Phosphatase 76 U/L (38-126) 04/26/21 06:45 Total Protein 7.1 g/dL (6.3-8.2) 04/26/21 06:45 Albumin 4.6 g/dL (3.5-5.0) 04/26/21 06:45 TSH 3.320 mIU/L (0.465-4.680) 04/26/21 06:45 Urine Opiates Screen Not Detected (NotDetected) 04/25/21 08:20 Ur Oxycodone Screen Not Detected (NotDetected) 04/25/21 08:20 Urine Methadone Screen Not Detected (NotDetected) 04/25/21 08:20 Ur Propoxyphene Screen Not Detected (NotDetected) 04/25/21 08:20 Ur Barbiturates Screen Not Detected (NotDetected) 04/25/21 08:20 U Tricyclic Antidepress Not Detected (NotDetected) 04/25/21 08:20 Ur Phencyclidine Scrn Not Detected (NotDetected) 04/25/21 08:20 Ur Amphetamines Screen Not Detected (NotDetected) 04/25/21 08:20 U Methamphetamines Scrn Not Detected (NotDetected) 04/25/21 08:20 U Benzodiazepines Scrn Not Detected (NotDetected) 04/25/21 08:20 Urine Cocaine Screen Not Detected (NotDetected) 04/25/21 08:20 U Marijuana (THC) Screen Detected (NotDetected) H 04/25/21 08:20 04/26/21 12:18 IDENTIFYING DATA: Patient is a single, employed, 30-year-old male admitted for psychosis and suicidal ideation HPI: Patient presented to the hospital on 04/25/21 for "a mental breakdown" and suicidal ideation with a plan to "blow my brains out." The patient was recently evaluated by his [facility] correctional case manager Kristina, who made an appointment for the patient sees psychiatrist. Unfortunately, the patient was unable to see the psychiatrist next Saturday and the patient reported that he does not feel like he would be safe until then. Upon admission to the unit, the patient states that he "put a curse on everyone 4 years ago and this is causing my problems today." He states that it all started 4 years ago when he was informed that his aunt was sick by his mother and that he placed a curse on his aunt. He reports that it all began when he went to [employer]" left myself." He states that he felt like something grabs onto him and did not let go and he was left at that [facility] since then. In regards to this current admission, the patient reports that his coworker was speaking to him and while that was going on, he noticed that his cousin was also present was able to see and hear him. He reports that it was then that his coworker Uday brought him to the hospital. The patient states that he has been experiencing auditory and visual hallucinations. He states that he is currently experiencing auditory hallucinations which she believes are his family members speaking to him. He states that they're telling him "to fix whatever I did." He does endorse bizarre delusions. She believes that he is placing curses on people causing them to feel sick or ill. Despite this, the patient is unable to provide any clear evidence of family members who have or have been hurt by his "curses." He does report that he has not been sleeping well. The patient was previously on a regimen of Invega and trazodone but has not been on these medications for the past year. The patient also states that he has been experiencing worsening depression and anxiety. He reports that he has suicidal ideation with a plan to shoot himself in the head but denies any access to firearms or other weapons. The patient states that he is feeling this way because his mental symptoms are worsening. He appears to have difficulty with reality testing. The patient was most recently evaluated by [facility] on 10/31/2020. During that time, the patient reported that he was doing okay and that he was happy that he and his mother moved to a new location. He was noted to respond slowly but endorsed being adherent with his medications. The patient was admitted for further evaluation and treatment. PAST PSYCHIATRIC HISTORY: Patient states that he has been previously diagnosed with schizophrenia and ADHD. Patient is only able to recall being previously prescribed invega and trazodone. The patient was last admitted on to the psychiatric unit in February 2020 and was discharged on a regimen of Invega and trazodone. He is currently open with [facility]. Patient denies any history of suicide attempts in the past. PMH: Past Medical History: Asthma History of Any Multi-Drug Resistant Organisms: None Reported Past Surgical History: No Surgical Hx Reported Past Psychological History: Bipolar Smoking Status: Current every day smoker Past Alcohol Use History: Occasional Past Drug Use History: Marijuana ALLERGIES: Amoxicillin, penicillin, tomato CHEMICAL DEPENDENCY HISTORY: Patient reports that he smokes 1 pack per day. He denies any significant alcohol use. He reports daily marijuana use. He denies any illicit drug use. He does report experimenting on methamphetamines and other drugs in the distant past. FAMILY PSYCHIATRIC/SUBSTANCE USE HISTORY: Denies SOCIAL HISTORY: Patient was born and raised in [place], [place]. He currently has a girlfriend but has never . He reports he has 2 sons and one suspected daughter. He states that he suspects that this daughter is his but he is not sure. He is currently employed at a [employer]. He lives with his mom, her boyfriend, his girlfriend and his kid. He was in [place] recently. Patient was in special education. MENTAL STATUS EXAM: General Appearance: Patient appears to be stated age is alert, directable, and attempts to cooperate. Patient appears to have fair hygiene and grooming. Patient appears to be of a thin build. Behavior: Patient is seated without any agitated behavior. Motor activity is elevated. He appears to be responding to internal stimuli. Speech: Patient's speech is fluent and nonpressured. Spontaneous, but slow to respond. Mood/Affect: Patient reports their mood is stressed out." Affect is congruent but blunted. Suicidality/Homicidality: Patient endorses suicidal ideation but denies any homicidal ideation. Perceptions: Patient endorses both auditory and visual hallucinations. Though content/process: Patient endorses bizarre delusions including magical thinking, ideas of reference, and a [place]gr[place] delusion. Thought process is difficult to follow as the patient is quite tangential, and circumstantial. He is responding to internal stimuli. Memory and concentration: AOX3, grossly intact for the purposes of this session. Concentration appears to be grossly poor. Judgment and insight: poor STRENGTHS/WEAKNESSES: Strength is that the patient is currently employed, is open with outpatient psychiatric services, and appears to have supportive family. Weakness is that patient engages in frequent marijuana use and has significant mental illness. INTELLECT: Below average IMPRESSIONS: Schizophrenia PLAN: -Patient is admitted under voluntary status to MHU for stabilization of psychiatric symptoms and safety. Patient signed adult voluntary form and med ication consent and is placed in patient's chart. -Medications : Will start patient on Invega 3 mg by mouth daily for psychosis Trazodone 100 mg by mouth at bedtime for insomnia -Ativan and Haldol PRN for agitation/aggression -Patient was counselled on substance abuse and desired to cut back on use -Patient was informed of the risks, benefits and side effects of the medication and patient verbally consented to taking the medications. Patient signed med consent form and was placed in chart. -Internal Medicine consult to perform medical evaluation and physical. -NRT - nicotine patch -SW on board for discharge planning. Encourage patient to participate in groups to work on coping skills. 04/26/21 12:18
[2021-04-26 15:24] LABS: Chol/HDL Ratio 3.21; Cholesterol 125 mg/dL (0-200)
[2021-04-26 16:31] LABS: Hemoglobin A1C 4.7 % (4.0-6.0)
[2021-04-26] MEDS: traZODone HCL 100 MG TAB PO SCH (22:49)
[2021-04-27 07:05] VITALS: RESP 18
[2021-04-27] MEDS: PALIPERIDONE 6 MG TAB.ER.24 PO SCH (08:09)
--- NOTE | 2021-04-27 11:08 | P.PN ---
Progress Note - Text Progress Note Date: 04/27/21 Interval History: Patient was seen wandering the hallways and was directable and agreeable to speak with comic writer in the office. The patient reports that he is feeling better today. He continues to endorse auditory hallucinations in the form of whispers that continue to command him to do things but states that these are overall less intense. He reports no visual hallucinations. He continues to endorse some delusional thought processes, continuing to believe that he has cursed everyone. The patient also expresses that he feels guilty because he feels like he has trapped everyone into the psychiatric with him. When informed that this is not the case and that patients will be leaving today, the patient expressed relief. He is currently not reporting any suicidal or homicidal ideation, intention, and/or plan. He is not reporting any side effects of his medication has been adherent. He reports sleep has significantly improved. He denies any issues with appetite. Mental Status Exam: General Appearance: Patient appears to be stated age is alert, directable, and cooperative. Patient has a thin build. Behavior: Patient is calmly seated without any agitated behavior. Eye contact is intense. Some psychomotor slowing is evident. Speech: Patient's speech is fluent and nonpressured. Low in volume and monotone. Mood/Affect: Mood is anxious, affect is congruent and nervous. Blunted. Suicidality/Homicidality: Patient denies having any suicidal or homicidal ideation intent or plan. Perceptions: Patient denies any visual hallucinations but endorses auditory hallucinations. Though content/process: Magical thinking and other delusions are evident. Memory and concentration: AOX3, grossly intact for the purposes of this session Judgment and insight: Improving mildly Vital Signs Temp 97.2 F L 04/27/21 06:38 Pulse 73 04/27/21 06:38 Resp 18 04/27/21 06:38 BP 87/48 04/27/21 06:38 Pulse Ox 97 04/25/21 16:00 Laboratory Results - Last 24 Hours 04/26/21 04/26/21 06:45 06:[address] Glu mg/dL 88 Hemoglobin A1c 4.7 Triglycerides 65.0 Cholesterol 125 LDL Cholesterol, Calc 73.0 VLDL Cholesterol, Calc 13.00 HDL Cholesterol 39.0 L Cholesterol/HDL Ratio 3.21 Assessment Schizophrenia Plan: -Patient continues to meet criteria for inpatient psychiatric admission for symptom stabilization and safety. Patient has signed adult voluntary form and medication consent and was placed in patient's chart. -Medications: Increase Invega to 6 mg by mouth daily for psychosis Continue trazodone 100 mg by mouth at bedtime for insomnia -When necessary Ativan and Haldol for agitation/aggression. -NRT - nicotine patch -SW on board for discharge planning. Encouraged the patient to participate in milieu.
[2021-04-27 14:37] VITALS: BMI 18.7
[2021-04-27] MEDS: traZODone HCL 100 MG TAB PO SCH (20:34)
[2021-04-28 01:48] VITALS: BP 97/59; PULSE 83; TEMP 97.4
[2021-04-28] MEDS: PALIPERIDONE 6 MG TAB.ER.24 PO SCH (08:38)
--- NOTE | 2021-04-28 11:01 | P.DS ---
Providers Date of admission: 04/25/21 15:48 Expected date of discharge: 04/28/21 Attending physician: Abhishek Gonzales MD Consults: 04/25/21 16:23 Consult Physician Routine Consulting Provider: Deepa Lopez Consult Reason/Comments: H&P and medical Do you want consulting provider notified?: Already Contacted Primary care physician: Stated None - Discharge Diagnosis(es) (1) Schizophrenia Current Visit: Yes Status: Acute Priority: High (2) Cannabis abuse Current Visit: Yes Status: Chronic Priority: Medium (3) Nicotine dependence Current Visit: Yes Status: Chronic Priority: Medium Hospital Course: Admission HPI: Patient is a single, employed, 30-year-old male admitted for psychosis and suicidal ideation Patient presented to the hospital on 04/25/21 for "a mental breakdown" and suicidal ideation with a plan to "blow my brains out." The patient was recently evaluated by his [facility] family preservation caseworker Kristina, who made an appointment for the patient sees psychiatrist. Unfortunately, the patient was unable to see the psychiatrist next Saturday and the patient reported that he does not feel like he would be safe until then. Upon admission to the unit, the patient states that he "put a curse on everyone 4 years ago and this is causing my problems today." He states that it all started 4 years ago when he was informed that his aunt was sick by his mother and that he placed a curse on his aunt. He reports that it all began when he went to [place] [employer]" left myself." He states that he felt like something grabs onto him and did not let go and he was left at that democr[place] since then. In regards to this current admission, the patient reports that his coworker was speaking to him and while that was going on, he noticed that his cousin was also present was able to see and hear him. He reports that it was then that his coworker Uday brought him to the hospital. The patient states that he has been experiencing auditory and visual hallucinations. He states that he is currently experiencing auditory hallucinations which she believes are his family members speaking to him. He states that they're telling him "to fix whatever I did." He does endorse bizarre delusions. She believes that he is placing curses on people causing them to feel sick or ill. Despite this, the patient is unable to provide any clear evidence of family members who have or have been hurt by his "curses." He does report that he has not been sleeping well. The patient was previously on a regimen of Invega and trazodone but has not been on these medications for the past year. The patient also states that he has been experiencing worsening depression and anxiety. He reports that he has suicidal ideation with a plan to shoot himself in the head but denies any access to firearms or other weapons. The patient states that he is feeling this way because his mental symptoms are worsening. He appears to have difficulty with reality testing. The patient was most recently evaluated by [facility] on 10/31/2020. During that time, the patient reported that he was doing okay and that he was happy that he and his mother moved to a new location. He was noted to respond slowly but endorsed being adherent with his medications. The patient was admitted for further evaluation and treatment. Hospital course: Upon admission to the unit patient was initially endorsing significant psychotic symptoms including delusional thinking, responding to internal stimuli and endorsing auditory and visual hallucinations. Patient was however directable and agreeable to commence treatment. Patient got along well with other patients on the unit and followed unit protocol. Patient was compliant with the medications and denied any side effects throughout hospital course. Patient was started on invega and trazodone as the patient was previously stable on these medications prior to discontinuing the medications a few weeks prior to this admission. Patient spoke of his stressors and engaged in therapy both group and individual. Patient was also seen by medical team for history and physical exam. Throughout the course of the hospitalization patient gradually improved with regards to his psychotic symptoms, insight and judgement. On the day of discharge, the patient is not reporting any suicidal or homicidal ideation, intention, and/or plan. Denies any access arms other weapons. He is currently denying any auditory or visual hallucinations. He reports no paranoia or delusions at this time. Patient expresses strong desire to live for himself and for his family, especially his child. The patient does have a significant history of substance abuse however was counseled on abstaining from all substances including alcohol and marijuana. Patient was also counseled on his medications, the need for adherence and the need for regular follow-up. Prior to discharge, family meeting will be arranged by certified social workers in health care to answer questions and ensure safety. Mental status exam: General Appearance: Patient appears to be stated age is alert, pleasant, and cooperative. Patient is in no acute distress and has fair hygiene and grooming. Patient is very thin. Behavior: Patient is calmly seated without any agitated behavior. Normal psych omotor activity. Speech: Patient's speech is fluent and nonpressured. Mood/Affect: Patient reports their mood is "much better", affect is congruent and euthymic but slightly constricted. Suicidality/Homicidality: Patient denies having any suicidal or homicidal ideation intent or plan. Perceptions: Patient denies any auditory or visual hallucinations. Though content/process: There is no evidence of any delusional thought content and thought process is linear and goal-directed. Future oriented. Memory and concentration: AOX3, grossly intact for the purposes of this session. Can spell "WORLD" backwards correctly. Judgment and insight: Improved Vital Signs Temp 97.4 F L 04/28/21 01:48 Pulse 83 04/28/21 01:48 Resp 18 04/28/21 01:48 BP 97/59 04/28/21 01:48 Pulse Ox 97 04/25/21 16:00 Intake & Output 04/27/21 04/28/21 04/28/21 18:59 06:59 18:59 Weight 54.2 kg Impression: Schizophrenia Nicotine Dependence Cannabis use Plan: -Continue with discharge today as patient has improved and stabilized psychiatrically and is not currently an imminent threat to himself and/or others. -Continue medications: Invega 6 mg by mouth daily for psychosis Trazodone 100 mg daily at bedtime for insomnia -Patient was counseled on the need for medication compliance and appropriate follow-up at mental health and also primary care for medical issues. Patient verbalized understanding and agreed. -Social work to arrange for and conduct family meeting to ensure safety upon discharge and answer any questions/concerns. Social work also to arrange for patients follow up appointments with [facility] for psychiatric care along with follow up with primary care provider. -Patient counseled on abstaining from recreational drugs and marijuana and alcohol. Was informed/educated on the adverse effects on their physical and mental health. Patient verbally agreed and understood. -Patient was instructed to return to the hospital or seek immediate medical care if their psychiatric or medical symptoms do worsen or reoccur. -Psychoeducation and supportive therapy provided to patient. Risks and benefits of pharmacological treatment versus the risks and benefits of nontreatment weight and discussed. Informed consent discussion held. Common side effects of psychotropics discussed such as, but not limited to headache, GI disturbance, sexual dysfunction, movement disorders, sedation, and orthostatic hypotension. Life threatening and blackbox warnings of prescribed medications also discussed. Potential risks of operating a vehicle or heavy machinery discussed with patient at length. Advised on importance of compliance and a reliable and responsible manner. Patient advised to review FDA consumer labeling of all medications prior to taking. Patient verbalized understanding of potential risks, and agrees with current treatment plan. Patient advised to medically contact physician/emergency personnel if any acute changes in condition occur. Laboratory Results WBC 6.8 k/uL (3.8-10.6) 04/26/21 06:45 RBC 5.08 m/uL (4.30-5.90) 04/26/21 06:45 Hgb 15.3 gm/dL (13.0-17.5) 04/26/21 06:45 Hct 46.8 % (39.0-53.0) 04/26/21 06:45 MCV 92.2 fL (80.0-100.0) 04/26/21 06:45 MCH 30.1 pg (25.0-35.0) 04/26/21 06:45 MCHC 32.7 g/dL (31.0-37.0) 04/26/21 06:45 RDW 12.5 % (11.5-15.5) 04/26/21 06:45 Plt Count 179 k/uL (150-450) 04/26/21 06:45 MPV 8.1 04/26/21 06:45 Neutrophils % 55 % 04/26/21 06:45 Lymphocytes % 33 % 04/26/21 06:45 Monocytes % 7 % 04/26/21 06:45 Eosinophils % 2 % 04/26/21 06:45 Basophils % 1 % 04/26/21 06:45 Neutrophils # 3.8 k/uL (1.3-7.7) 04/26/21 06:45 Lymphocytes # 2.3 k/uL (1.0-4.8) 04/26/21 06:45 Monocytes # 0.5 k/uL (0-1.0) 04/26/21 06:45 Eosinophils # 0.2 k/uL (0-0.7) 04/26/21 06:45 Basophils # 0.0 k/uL (0-0.2) 04/26/21 06:45 Sodium 140 mmol/L (137-145) 04/26/21 06:45 Potassium 3.9 mmol/L (3.5-5.1) 04/26/21 06:45 Chloride 104 mmol/L (98-107) 04/26/21 06:45 Carbon Dioxide 27 mmol/L (22-30) 04/26/21 06:45 Anion Gap 9 mmol/L 04/26/21 06:45 BUN 15 mg/dL (9-20) 04/26/21 06:45 Creatinine 0.98 mg/dL (0.66-1.25) 04/26/21 06:45 Est GFR (CKD-EPI)AfAm >90 (>60 ml/min/1.73 sqM) 04/26/21 06:45 Est GFR (CKD-EPI)NonAf >90 (>60 ml/min/1.73 sqM) 04/26/21 06:45 Glucose 83 mg/dL (74-99) 04/26/21 06:[address] Glu mg/dL 88 04/26/21 06:45 Hemoglobin A1c 4.7 % (4.0-6.0) 04/26/21 06:45 Calcium 9.5 mg/dL (8.4-10.2) 04/26/21 06:45 Total Bilirubin 0.5 mg/dL (0.2-1.3) 04/26/21 06:45 AST 20 U/L (17-59) 04/26/21 06:45 ALT 11 U/L (4-49) 04/26/21 06:45 Alkaline Phosphatase 76 U/L (38-126) 04/26/21 06:45 Total Protein 7.1 g/dL (6.3-8.2) 04/26/21 06:45 Albumin 4.6 g/dL (3.5-5.0) 04/26/21 06:45 Triglycerides 65.0 mg/dL (0.0-149.0) 04/26/21 06:45 Cholesterol 125 mg/dL (0-200) 04/26/21 06:45 LDL Cholesterol, Calc 73.0 mg/dL (0.0-131.0) 04/26/21 06:45 VLDL Cholesterol, Calc 13.00 mg/dL (5.00-40.00) 04/26/21 06:45 HDL Cholesterol 39.0 mg/dL (40.0-60.0) L 04/26/21 06:45 Cholesterol/HDL Ratio 3.21 04/26/21 06:45 TSH 3.320 mIU/L (0.465-4.680) 04/26/21 06:45 Urine Opiates Screen Not Detected (NotDetected) 04/25/21 08:20 Ur Oxycodone Screen Not Detected (NotDetected) 04/25/21 08:20 Urine Methadone Screen Not Detected (NotDetected) 04/25/21 08:20 Ur Propoxyphene Screen Not Detected (NotDetected) 04/25/21 08:20 Ur Barbiturates Screen Not Detected (NotDetected) 04/25/21 08:20 U Tricyclic Antidepress Not Detected (NotDetected) 04/25/21 08:20 Ur Phencyclidine Scrn Not Detected (NotDetected) 04/25/21 08:20 Ur Amphetamines Screen Not Detected (NotDetected) 04/25/21 08:20 U Methamphetamines Scrn Not Detected (NotDetected) 04/25/21 08:20 U Benzodiazepines Scrn Not Detected (NotDetected) 04/25/21 08:20 Urine Cocaine Screen Not Detected (NotDetected) 04/25/21 08:20 U Marijuana (THC) Screen Detected (NotDetected) H 04/25/21 08:20 Allergies Allergy/AdvReac Type Severity Reaction Status Date / Time amoxicillin Allergy Unknown Verified 04/25/21 08:22 Penicillins Allergy Unknown Verified 04/25/21 08:22 tomato Allergy Itching Verified 04/25/21 08:22 Patient Condition at Discharge: Stable Plan - Discharge Summary New Discharge Prescriptions: New traZODone HCL [Desyrel] 100 mg PO HS 30 Days tab Paliperidone [Invega] 6 mg PO DAILY #30 tab.er.24 Discharge Medication List Paliperidone [Invega] 6 mg PO DAILY #30 tab.er.24 07/23/21 [Rx] traZODone HCL [Desyrel] 100 mg PO HS 30 Days tab 04/28/21 [Rx] Follow up Appointment(s)/Referral(s): None,Stated [Primary Care Provider] - 1-2 days Activity/Diet/Wound Care/Special Instructions: Activity and diet as tolerated. Avoid the use of street drugs and alcohol. Take all medications as prescribed. When you are in need of refills on your medications please contact your medical provider and/or outpatient psychiatrist to have this done. Please go to scheduled outpatient appointment for aftercare treatment. If symptoms return or become worse, call the crisis line at and/or go to the nearest emergency room for evaluation. Discharge Disposition: HOME SELF-CARE
== END 2021-04-28 14:41 | disposition home or self-care (01) | DRG 885 ==
LOC: EC 07:22 → 3MHU 15:48
PROVIDERS: ADMIT Psychiatry & Neurology Psychiatry; ATTEND Psychiatry & Neurology Psychiatry
DX: F20.9 Schizophrenia, unspecified (principal); F12.10 Cannabis abuse, uncomplicated; F17.210 Nicotine dependence, cigarettes, uncomplicated; J45.909 Unspecified asthma, uncomplicated; F41.9 Anxiety disorder, unspecified; G47.00 Insomnia, unspecified; Z88.1 Allergy status to other antibiotic agents; Z79.899 Other long term (current) drug therapy; Z91.02 Food additives allergy status; Z88.0 Allergy status to penicillin; Z91.14 Patient's other noncompliance with medication regimen
CPT/HCPCS: 80053; 80061; 80306; 83036; 84443; 85025; 99283

== ENCOUNTER 2022-02-12 13:05 | Emergency (ER) | payer OTHER ==
[2022-02-12 13:43] VITALS: BP 113/77; PULSE 72; RESP 18; TEMP 97.7
--- NOTE | 2022-02-12 16:58 | ED ---
General Adult HPI - General Chief complaint: Psychiatric Symptoms Stated complaint: EPS eval Time Seen by Provider: 02/12/22 16:32 Source: patient, RN notes reviewed, old records reviewed Mode of arrival: ambulatory Limitations: no limitations - History of Present Illness Initial comments: 31-year-old male presenting for psychiatric evaluation. He states that he has been hearing voices and seeing things that are not there. He has a known history of schizophrenia. He denies suicidal or homicidal ideation. Patient states that his girlfriend urged him to be evaluated. He has no physical complaints. He has an appointment with [facility] later this week. - Related Data Home Medications Medication Instructions Recorded Confirmed No Known Home Medications 02/12/22 02/12/22 Allergies Allergy/AdvReac Type Severity Reaction Status Date / Time amoxicillin Allergy Unknown Verified 02/12/22 18:20 Penicillins Allergy Unknown Verified 02/12/22 18:20 tomato Allergy Itching Verified 02/12/22 18:20 Review of Systems ROS Statement: Those systems with pertinent positive or pertinent negative responses have been documented in the HPI. ROS Other: All systems not noted in ROS Statement are negative. Past Medical History Past Medical History: Asthma History of Any Multi-Drug Resistant Organisms: None Reported Past Surgical History: No Surgical Hx Reported Past Psychological History: Bipolar, Schizophrenia Smoking Status: Current every day smoker Past Alcohol Use History: Occasional Past Drug Use History: Marijuana - Past Family History Family Family Medical History: No Reported History General Exam Limitations: no limitations General appearance: alert, in no apparent distress Head exam: Present: atraumatic, normocephalic Eye exam: Present: normal appearance, PERRL ENT exam: Present: normal exam Neck exam: Present: normal inspection. Absent: tenderness, meningismus Respiratory exam: Present: normal lung sounds bilaterally. Absent: respiratory distress, wheezes Cardiovascular Exam: Present: regular rate, normal rhythm GI/Abdominal exam: Present: soft. Absent: distended, tenderness Extremities exam: Present: normal inspection Neurological exam: Present: alert, oriented X3, CN II-XII intact. Absent: motor sensory deficit Psychiatric exam: Present: flat affect. Absent: homicidal ideation, suicidal ideation Skin exam: Present: warm, dry, intact Course Vital Signs 02/12/22 13:36 Temperature 97.7 F Pulse Rate 72 Respiratory 18 Rate Blood Pressure 113/77 O2 Sat by Pulse 96 Oximetry - Reevaluation(s) Reevaluation #1: 02/12/22 16:58 Cleared for EPS. Medical Decision Making - Medical Decision Making 31-year-old male who had presented for psychiatric evaluation, hallucination. No suicidal or homicidal thoughts. Patient calm and cooperative in the emergency department. There was delay in being evaluated by EPS and ultimately the patient decided that he would preferred to follow up as an outpatient. Patient has known history of psychiatric illness. He has not been petitioned. He has no suicidal or homicidal ideation. He is able to make his own decisions. He will be discharged at this time. Disposition Clinical Impression: Schizoaffective disorder Disposition: HOME SELF-CARE Condition: Fair Instructions (If sedation given, give patient instructions): Schizoaffective Disorder (ED) Additional Instructions: Please follow up with community mental health. Is patient prescribed a controlled substance at d/c from ED?: No Referrals: None,Stated [Primary Care Provider] - 1-2 days Time of Disposition: 18:24
== END 2022-02-12 18:42 | disposition home or self-care (01) ==
LOC: EC 13:05
DX: F25.9 Schizoaffective disorder, unspecified (principal); F17.200 Nicotine dependence, unspecified, uncomplicated; J45.909 Unspecified asthma, uncomplicated; Z88.0 Allergy status to penicillin; Z91.018 Allergy to other foods
CPT/HCPCS: 82075; 99284

== ENCOUNTER 2022-02-13 09:54 | Inpatient (IN) | payer MEDICAID, OTHER ==
--- NOTE | 2022-02-13 13:17 | ED ---
Psych HPI - General Chief Complaint: Psychiatric Symptoms Stated Complaint: Altered Mental Status Time Seen by Provider: 02/13/22 11:04 Source: patient, family, RN notes reviewed Mode of arrival: ambulatory Limitations: no limitations - History of Present Illness Initial Comments: This is a 31-year-old male presents emergency department for psychiatric t reatment. Patient states that he is having issues with his medications, mental health. Patient states he is not depressed or suicidal at this time states is very paranoid, has history of schizophrenia is unsure piece taking medications. He does admit to marijuana use. No alcohol abuse. - Related Data Home Medications Medication Instructions Recorded Confirmed No Known Home Medications 02/12/22 02/13/22 Allergies Allergy/AdvReac Type Severity Reaction Status Date / Time amoxicillin Allergy Unknown Verified 02/13/22 11:30 Penicillins Allergy Unknown Verified 02/13/22 11:30 tomato Allergy Itching Verified 02/13/22 11:30 Review of Systems ROS Statement: Those systems with pertinent positive or pertinent negative responses have been documented in the HPI. ROS Other: All systems not noted in ROS Statement are negative. Past Medical History Past Medical History: Asthma History of Any Multi-Drug Resistant Organisms: None Reported Past Surgical History: No Surgical Hx Reported Past Psychological History: Bipolar, Schizophrenia Smoking Status: Current every day smoker Past Alcohol Use History: Occasional Past Drug Use History: Marijuana - Past Family History Family Family Medical History: No Reported History General Exam Limitations: no limitations General appearance: alert, in no apparent distress Head exam: Present: atraumatic, normocephalic, normal inspection Eye exam: Present: normal appearance, PERRL, EOMI. Absent: scleral icterus, conjunctival injection, periorbital swelling ENT exam: Present: normal exam, normal oropharynx, mucous membranes moist Neck exam: Present: normal inspection, full ROM. Absent: tenderness, meningismus, lymphadenopathy Respiratory exam: Present: normal lung sounds bilaterally. Absent: respiratory distress, wheezes, rales, rhonchi, stridor Cardiovascular Exam: Present: regular rate, normal rhythm, normal heart sounds. Absent: systolic murmur, diastolic murmur, rubs, gallop, clicks Neurological exam: Present: alert, oriented X3, CN II-XII intact Skin exam: Present: warm, dry, intact, normal color. Absent: rash Course Vital Signs 05/10/22 09:57 Temperature 97.7 F Pulse Rate 84 Respiratory 18 Rate Blood Pressure 121/85 O2 Sat by Pulse 95 Oximetry Medical Decision Making - Medical Decision Making Patient will be admitted for psychiatric treatment. Patient was evaluated by EPS. Disposition Clinical Impression: Schizophrenia Disposition: ADMITTED IP TO THIS HOSP Condition: Stable Referrals: None,Stated [Primary Care Provider] - 1-2 days Time of Disposition: 13:17
[2022-02-13] MEDS ORDERED: ACETAMINOPHEN TAB 325 MG TAB PO PRN (15:02)
[2022-02-13] MEDS ORDERED: MAGNESIUM HYDROXIDE 2,400 MG/10 ML CUP PO PRN (15:02)
[2022-02-13] MEDS ORDERED: HALOPERIDOL LACTATE 5 MG/ML 1 ML VIAL IM PRN (15:02)
[2022-02-13] MEDS ORDERED: LORazepam 2 MG/ML INJ IM PRN (15:06)
[2022-02-13] MEDS ORDERED: haloperidoL 5 MG TAB PO PRN (15:06)
--- NOTE | 2022-02-13 18:01 | P.MDCNMH ---
History of Present Illness H&P Date: 02/13/22 Chief Complaint: medical clearance 31-year-old man with schizophrenia, depression, marijuana abuse, nicotine abuse presented for psychosis and depression. He was admitted to the mental health unit, medicine was consulted for medical clearance. Patient had no complaints at this time. He reports taking no medicine at home, was never diagnosed with high blood pressure, high cholesterol, diabetes. He denies fevers, chills, nausea, vomiting, chest pain, palpitations, syncope, presyncope, cough, dyspnea, abdominal pain, constipation, diarrhea, dysuria, dyschezia, numbness/weakness of extremities. Upon evaluation, patient was afebrile, hemodynamically stable. Covid was negative. No imaging to review. All Systems reviewed and pertinent positives and negatives noted in HPI, all other symptoms are negative Gen: awake, alert HEENT: normocephalic, atraumatic, good hearing acuity, moist mucous membranes Resp: good air exchange, breathing comfortably with no accessory muscle use CVS: good distal perfusion x 4, GI: soft, NTTP, ND : no SPT, no CVAT, mandel catheter Not present MSK: no pitting edema, no clubbing Neuro: non-focal, moving all extremities Psych: cooperative, euthymic mood Labs as above Assessment/plan: Nicotine abuse marijuana abuse - cessation counseling recommended - nicotine patch versus lozenges at patient request schizophrenia depression - care per primary team Thank you for this consult, a member of our team is present 29/04, should any questions or concerns arise, please reach out via perfect serve. Past Medical History Past Medical History: Asthma History of Any Multi-Drug Resistant Organisms: None Reported Past Surgical History: No Surgical Hx Reported Past Psychological History: Bipolar, Schizophrenia Smoking Status: Current every day smoker Past Alcohol Use History: Occasional Past Drug Use History: Marijuana - Past Family History Family Family Medical History: No Reported History Medications and Allergies Home Medications Medication Instructions Recorded Confirmed Type No Known Home Medications 02/12/22 02/13/22 History Allergies Allergy/AdvReac Type Severity Reaction Status Date / Time amoxicillin Allergy Unknown Verified 02/13/22 11:30 Penicillins Allergy Unknown Verified 02/13/22 11:30 tomato Allergy Itching Verified 02/13/22 11:30 Physical Exam Osteopathic Statement: *. No significant issues noted on an osteopathic structural exam other than those noted in the History and Physical/Consult. Vitals: Vital Signs Temp Pulse Pulse Resp BP BP Pulse Ox 02/13/22 15:46 97.5 F L 62 16 117/76 02/13/22 09:57 97.7 F 84 18 121/85 95 Intake and Output 02/13/22 02/13/22 02/13/22 06:59 14:59 22:59 Other: Weight 56.88 kg Cranial Nerve Examination - Cranial Nerves Cranial Nerve II- Optic: Intact Cranial Nerve III- Oculomotor: Intact Cranial Nerve IV- Trochlear: Intact Cranial Nerve V- Trigeminal: Intact Cranial Nerve - Abducens: Intact Cranial Nerve VII- Facial: Intact Cranial Nerve VIII- Auditory: Intact Cranial Nerve IX- Glossopharyngeal: Intact Cranial Nerve X- Vagus: Intact Cranial Nerve XI- Accessory: Intact Cranial Nerve XII- Hypoglossal: Intact
[2022-02-13] MEDS: LORazepam 1 MG TAB PO PRN (23:05)
[2022-02-14] MEDS: NICOTINE 14MG/24HR PATCH TRANSDERM SCH (09:16)
--- NOTE | 2022-02-14 13:23 | P.HP ---
Psychiatric H&P - . H&P Date: 02/14/22 History & Physical: Allergies Allergy/AdvReac Type Severity Reaction Status Date / Time amoxicillin Allergy Unknown Verified 02/13/22 11:30 Penicillins Allergy Unknown Verified 02/13/22 11:30 tomato Allergy Itching Verified 02/13/22 11:30 Vital Signs Temp 97.5 F L 02/13/22 15:46 Pulse 62 02/13/22 15:46 Resp 16 02/13/22 15:46 BP 117/76 02/13/22 15:46 Pulse Ox 95 02/13/22 09:57 Intake & Output 02/13/22 02/14/22 02/14/22 18:59 06:59 18:59 Weight 56.88 kg Laboratory Last Values Coronavirus (PCR) Not Detected (Not Detectd) 02/13/22 14:33 02/14/22 11:52 IDENTIFYING DATA: Patient is a single, employed, 31-year-old male, currently lives with his mother and her boyfriend in a house, he has 2 kids, he collects SSI. HPI: Patient presented to the hospital complaining of problems with his mental health and medications. Patient was not endorsing any depression or suicidal thoughts however was endorsing some paranoia. As per EPS evaluation patient was apparently delusional and believed that he was God. Patient's stepmother claims that after his previous admission he was started on medications which were helping him significantly however patient has recently stopped his medications and decompensated afterwards. Patient was given Haldol and Ativan when necessary yesterday and admitted to the mental health unit. Patient is currently voluntary. Patient was last admitted to the psychiatric unit on 04/26. Patient was seen in the hallway and agreeable to speak to auto service writer. He was fairly pleasant and interactive during the conversation. He states that he's been hearing voices however states "I don't know what they're saying". He claims that they're telling him "a bunch of stuff" and was endorsing that some of them are fairly negative. He claims that he was speaking with other patients on the unit and was fairly focused on what they were talking to him about and their issues. He states that his girlfriend brought him into the hospital as she was concerned about his mental health. He made some inappropriate comments and gestures. He did claim that he was feeling fairly irritable. He states that his mood is "fine" and denies any anxiety today. He states that he stopped taking his medications above for 5 months ago because he thought that he was doing better. He claims that his sleep has been poor. Appetite is fair. He did endorse paranoia once again. Patient claims that he has been using marijuana every day, and also smoking cigarettes. He does report that he has not been sleeping well. The patient was previously on a regimen of Invega and trazodone but has not been on these medications for the past year. At this time he is currently denying any auditory or visual hallucinations and denying any suicidal or homicidal ideations intent or plan. PAST PSYCHIATRIC HISTORY: Patient states that he has been previously diagnosed with schizophrenia and ADHD. Patient is only able to recall being previously prescribed invega and trazodone. The patient was last admitted on to the psychiatric unit in April 2021 and was discharged on a regimen of Invega and trazodone. He is currently open with [facility]. Patient denies any history of suicide attempts in the past. PMH: Asthma ALLERGIES: Amoxicillin, penicillin, tomato CHEMICAL DEPENDENCY HISTORY: Patient reports that he smokes 1 pack per day. He denies any significant alcohol use. He reports daily marijuana use. He denies any illicit drug use. He does report experimenting on methamphetamines and other drugs in the distant past. FAMILY PSYCHIATRIC/SUBSTANCE USE HISTORY: Denies SOCIAL HISTORY: Patient was born and raised in [place], [place]. He currently has a girlfriend but has never . He reports he has 2 sons.He is currently unemployed and collecting SSI. He lives with his mom, her boyfriend, his girlfriend and his kid. Patient was in special education. MENTAL STATUS EXAM: General Appearance: Patient appears to be thin, stated age is alert, directable, and attempts to cooperate. Patient appears to have fair hygiene and grooming. Behavior: Patient is seated without any agitated behavior. Motor activity is elevated. Speech: Patient's speech is fluent and nonpressured. Spontaneous, but slow to respond. Mood/Affect: Patient reports their mood is "okay" Affect is congruent and constricted Suicidality/Homicidality: Patient endorses suicidal ideation but denies any homicidal ideation. Perceptions: Patient endorses both auditory and visual hallucinations. Though content/process: Patient is tangential and rambles at times. Streeter, poverty of content. Memory and concentration: AOX3, grossly intact for the purposes of this session. Concentration appears to be grossly poor. Judgment and insight: Chronically poor STRENGTHS/WEAKNESSES: Strength is that the patient is currently employed, is open with outpatient psychiatric services, and appears to have supportive family. Weakness is that patient engages in frequent marijuana use and has significant mental illness. INTELLECT: Below average IMPRESSIONS: Schizophrenia Cannabis use disorder Nicotine dependence PLAN: -Patient is admitted under voluntary status to MHU for stabilization of psychiatric symptoms and safety. Patient signed adult voluntary form and medication consent and is placed in patient's chart. -Medications : Will start patient on Invega 3 mg by mouth daily for psychosis, melatonin qhs for sleep. -Ativan and Haldol PRN for agitation/aggression -Patient was counselled on substance abuse and desired to cut back on use -Patient was informed of the risks, benefits and side effects of the medication and patient verbally consented to taking the medications. Patient signed med consent form and was placed in chart. -Internal Medicine consult to perform medical evaluation and physical. -NRT - nicotine patch -SW on board for discharge planning. Encourage patient to participate in groups to work on coping skills.
[2022-02-14] MEDS ORDERED: PALIPERIDONE 3 MG TAB.ER.24 PO SCH (21:00)
[2022-02-14] MEDS ORDERED: MELATONIN 3 MG TABLET PO SCH (21:00)
[2022-02-15] MEDS: LORazepam 1 MG TAB PO PRN (01:47)
[2022-02-15] MEDS: NICOTINE 14MG/24HR PATCH TRANSDERM SCH (08:45)
[2022-02-15] MEDS ORDERED: MIRTAZAPINE 15 MG TAB PO PRN (11:52)
--- NOTE | 2022-02-15 12:00 | P.PN ---
Progress Note - Text Progress Note Date: 02/15/22 Interval History: Patient was seen sitting in on group today and was directable and agreeable to speak with selling underwriter in the office. Patient appears to have an improvement in his affect today. He was fairly directable and appropriate during conversation. He states that he feels better in terms of his mood and anxiety today. He is denying any paranoia today. He claims that he feels the medication has been helping him. He claimed that he is going to groups and attending to participate as best as he can. She claimed that he thought about the injection and most likely will be able to receive it tomorrow. He claims that he is trying to go to as many groups as he can. He states that he did not sleep well last night and required Ativan to sleep. He was agreeable to have his medications adjusted. At this time patient denies any suicidal or homical ideations, intent or plan. Patient denies any auditory, visual hallucinations. Patient denies any side effects from the medications and has been compliant with meds. Mental Status Exam: General Appearance: Patient appears to be thin, stated age is alert, directable, and attempts to cooperate. Patient appears to have fair hygiene and grooming. Behavior: Patient is seated without any agitated behavior. More appropriate and calmer today. Speech: Patient's speech is fluent and nonpressured. Spontaneous Mood/Affect: Patient reports their mood is "ok" Affect is congruent and improving Suicidality/Homicidality: Patient endorses suicidal ideation but denies any homicidal ideation. Perceptions: Patient endorses both auditory and visual hallucinations. Though content/process: Patient is more appropriate today, not endorsing any delusions or paranoia. More logical in thought process and organized. Memory and concentration: AOX3, grossly intact for the purposes of this session Judgment and insight: Chronically poor, improving mildly IMPRESSIONS: Schizophrenia Cannabis use disorder Nicotine dependence Plan: -Patient continues to meet criteria for inpatient psychiatric admission for symptom stabilization and safety. Patient has signed adult voluntary form and medication consent and was placed in patient's chart. -Medications: Increased paliperidone to 6 mg daily at bedtime for psychosis. Patient claims that he is agreeable to receive the loading dose of Invega Sustenna tomorrow. Increase melatonin to 10 mg daily at bedtime for sleep. Added Remeron 15 mg daily at bedtime when necessary for sleep. -When necessary Ativan and Haldol for agitation/aggression. -NRT - nicotine patch -SW on board for discharge planning. Encouraged the patient to participate in milieu. Patient will receive Invega Sustenna tomorrow loading dose and either discharge tomorrow versus Saturday back home.
[2022-02-15] MEDS ORDERED: PALIPERIDONE 6 MG TAB.ER.24 PO SCH (21:00)
[2022-02-15] MEDS ORDERED: MELATONIN 5 MG TABLET PO SCH (21:00)
[2022-02-16 07:00] VITALS: BP 103/51; PULSE 58; RESP 16; TEMP 97.8
[2022-02-16] MEDS: NICOTINE 14MG/24HR PATCH TRANSDERM SCH (08:46)
[2022-02-16] MEDS ORDERED: PALIPERIDONE IM 234 MG/1.5 ML SYG IM ONE (09:30)
--- NOTE | 2022-02-16 10:20 | P.DS ---
Providers Date of admission: 02/13/22 14:58 Expected date of discharge: 02/16/22 Attending physician: John Gunn MD Consults: 02/13/22 15:02 Consult Physician Routine Consulting Provider: Deepa Lopez Consult Reason/Comments: history and physical Do you want consulting provider notified?: Yes Primary care physician: Stated None - Discharge Diagnosis(es) (1) Schizophrenia Current Visit: Yes Status: Acute Priority: High (2) Cannabis use disorder, mild, abuse Current Visit: Yes Status: Acute Priority: Medium (3) Nicotine dependence Current Visit: Yes Status: Acute Priority: Low Hospital Course: Admission HPI: Admission note was completed by magnetic tape typewriter operator "Patient is a single, employed, 31-year-old male, currently lives with his mother and her boyfriend in a house, he has 2 kids, he collects SSI. Patient presented to the hospital complaining of problems with his mental health and medications. Patient was not endorsing any depression or suicidal thoughts however was endorsing some paranoia. As per EPS evaluation patient was apparently delusional and believed that he was God. Patient's stepmother claims that after his previous admission he was started on medications which were helping him significantly however patient has recently stopped his medications and decompensated afterwards. Patient was given Haldol and Ativan when necessary yesterday and admitted to the mental health unit. Patient is currently voluntary. Patient was last admitted to the psychiatric unit on 04/26. Patient was seen in the hallway and agreeable to speak to magnetic tape typewriter operator. He was fairly pleasant and interactive during the conversation. He states that he's been hearing voices however states "I don't know what they're saying". He claims that they're telling him "a bunch of stuff" and was endorsing that some of them are fairly negative. He claims that he was speaking with other patients on the unit and was fairly focused on what they were talking to him about and their issues. He states that his girlfriend brought him into the hospital as she was concerned about his mental health. He made some inappropriate comments and gestures. He did claim that he was feeling fairly irritable. He states that his mood is "fine" and denies any anxiety today. He states that he stopped taking his medications above for 5 months ago because he thought that he was doing better. He claims that his sleep has been poor. Appetite is fair. He did endorse paranoia once again. Patient claims that he has been using marijuana every day, and also smoking cigarettes. He does report that he has not been sleeping well. The patient was previously on a regimen of Invega and trazodone but has not been on these medications for the past year. At this time he is currently denying any auditory or visual hallucinations and denying any suicidal or homicidal ideations intent or plan." Hospital course: Upon admission to the unit patient was directable and agreeable to commence treatment and signed adult voluntary form. Patient got along well with other patients on the unit and followed unit protocol. Patient was compliant with the medications and denied any side effects throughout hospital course. Patient was started on paliperidone by mouth titrated up to dose of 6 mg daily at bedtime for psychosis. Patient was agreeable to be transitioned onto Invega Sustenna, given loading dose 234 mg IM on 02/16 and will be due for his next dose of 156 mg IM on 02/23 and monthly dose on 03/16 of 117mg IM. Patient spoke of his stressors and engaged in therapy both group and individual. Patient was also seen by medical team for history and physical exam. Throughout the course of the hospitalization patient gradually improved with regards to psychosis, paranoia, mood, sleep and returned back to their baseline level of functioning. On the day of discharge patient denied any suicidal or homicidal ideations intent or plan denied any auditory or visual hallucinations. Patient endorsed wanting to live for his health and family. The patient denied any access to guns or weapons. Patient denied any paranoia and did not endorse any delusions. Patient does have a significant history of substance abuse and was counseled on abstaining from all substances including alcohol and marijuana. Patient elected to do outpatient substance use treatment program through [facility]. Patient was also counseled on the medications and need for regular compliance and was encouraged to follow-up with their outpatient appointment for mental health and also for primary care. Prior to discharge a family meeting will be arranged by social studies department chair to answer any questions and ensure safety upon discharge. Social work also to ensure that there are not guns/weapons in the house. Mental status exam: General Appearance: Patient appears to be stated age is alert, pleasant, and cooperative. Patient is in no acute distress and has improved hygiene and grooming Behavior: Patient is calmly seated without any agitated behavior. Speech: Patient's speech is fluent and nonpressured. Mood/Affect: Patient reports their mood is "good", affect is congruent Suicidality/Homicidality: Patient denies having any suicidal or homicidal ideation intent or plan. Perceptions: Patient denies any auditory or visual hallucinations. Though content/process: There is no evidence of any delusional thought content and thought process is linear and goal-directed. concrete Memory and concentration: AOX3, grossly intact for the purposes of this session. Can spell "WORLD" backwards correctly. Judgment and insight: chronically limited, however has improved with guarded prognosis Impression: Schizophrenia Cannabis use disorder Nicotine dependence Plan: -Continue with discharge today as patient has improved and stabilized psychiatrically and is not currently an imminent threat to himself and/or o thers. Patient will remain at chronically elevated risk for harm to self and/or others due to his impulsivity and substance abuse. -Continue medications: Oral paliperidone 6 mg daily at bedtime for 4 more days then to be discontinued. Patient was transitioned onto Invega Sustenna, given loading dose of 234 mg IM on 02/16 prior to discharge, will be due for next dose of 156 mg IM on 02/23 and maintenance monthly dose of 117 mg IM on 03/16. -Patient was counseled on the need for medication compliance and appropriate follow-up at mental health and also primary care for medical issues. Patient verbalized understanding and agreed. -Social work to arrange for and conduct family meeting to ensure safety upon discharge and answer any questions/concerns. Social work also to arrange for patients follow up appointments with [facility] for psychiatric care along with follow up with primary care provider. -Patient counseled on abstaining from recreational drugs and marijuana and alcohol. Was informed/educated on the adverse effects on their physical and mental health. Patient verbally agreed and understood. Patient was offered substance abuse treatment however declined at this time. -Patient was instructed to return to the hospital or seek immediate medical care if their psychiatric or medical symptoms do worsen or reoccur. Allergies Allergy/AdvReac Type Severity Reaction Status Date / Time amoxicillin Allergy Unknown Verified 02/13/22 11:30 Penicillins Allergy Unknown Verified 02/13/22 11:30 tomato Allergy Itching Verified 02/13/22 11:30 Laboratory Results Coronavirus (PCR) Not Detected (Not Detectd) 02/13/22 14:33 Vital Signs Temp 97.8 F 02/16/22 06:59 Pulse 58 L 02/16/22 06:59 Resp 16 02/16/22 06:59 BP 103/51 02/16/22 06:59 Pulse Ox 97 02/16/22 06:59 Patient Condition at Discharge: Stable Plan - Discharge Summary New Discharge Prescriptions: New Melatonin 10 mg PO HS 30 Days tablet Nicotine 14Mg/24Hr Patch [Habitrol] 1 patch TRANSDERM DAILY 14 Days patch Paliperidone [Invega] 6 mg PO HS 4 Days Paliperidone IM [Invega Sustenna] 156 mg IM ONCE #1 each Paliperidone Palmitate [Invega Sustenna] 117 mg IM QMONTHLY #1 each Discharge Medication List Melatonin 10 mg PO HS 30 Days tablet 02/16/22 [Rx] Nicotine 14Mg/24Hr Patch [Habitrol] 1 patch TRANSDERM DAILY 14 Days patch 02/16/22 [Rx] Paliperidone IM [Invega Sustenna] 156 mg IM ONCE #1 each 02/16/22 [Rx] Paliperidone Palmitate [Invega Sustenna] 117 mg IM QMONTHLY #1 each 02/16/22 [Rx] Paliperidone [Invega] 6 mg PO HS 4 Days 02/16/22 [Rx] Follow up Appointment(s)/Referral(s): None,Stated [Primary Care Provider] - 1-2 days Activity/Diet/Wound Care/Special Instructions: Activity and diet as tolerated. Avoid the use of street drugs and alcohol. Take all medications as prescribed. When you are in need of refills on your medications please contact your medical provider and/or outpatient psychiatrist to have this done. Please go to scheduled outpatient appointment for aftercare treatment. If symptoms return or become worse, call the crisis line at and/or go to the nearest emergency room for evaluation Discharge Disposition: HOME SELF-CARE
== END 2022-02-16 12:55 | disposition home or self-care (01) | DRG 885 ==
LOC: EC 09:54 → 3MHU 14:58
PROVIDERS: ADMIT Psychiatry & Neurology Psychiatry; ATTEND Psychiatry & Neurology Psychiatry
DX: F20.9 Schizophrenia, unspecified (principal); F12.10 Cannabis abuse, uncomplicated; F31.9 Bipolar disorder, unspecified; Z20.822 Contact with and (suspected) exposure to COVID-19; F41.9 Anxiety disorder, unspecified; F90.9 Attention-deficit hyperactivity disorder, unspecified type; J45.909 Unspecified asthma, uncomplicated; F17.210 Nicotine dependence, cigarettes, uncomplicated; Z71.6 Tobacco abuse counseling; Z71.51 Drug abuse counseling and surveillance of drug abuser; Z56.0 Unemployment, unspecified; Z88.0 Allergy status to penicillin; Z91.018 Allergy to other foods
CPT/HCPCS: 82075; 87635; 99284

== ENCOUNTER 2022-05-13 17:37 | Emergency (ER) | payer MEDICAID, OTHER ==
[2022-05-13 18:23] VITALS: BP 128/71; PULSE 69; RESP 16; TEMP 98
[2022-05-13] MEDS ORDERED: TOPICAL SKIN ADHESIVE 1 EACH AMP TOPICAL ONE (18:37)
[2022-05-13] MEDS ORDERED: LIDOCAINE/EPINEPHR/TETRACAINE 5 ML BOTTLE TOPICAL ONE (18:37)
[2022-05-13] MEDS ORDERED: DIPH,PERTUS(ACELL)TETVAC-LF 0.5 ML VIAL IM ONE (18:38)
--- NOTE | 2022-05-13 18:41 | ED ---
Wound/Laceration HPI - General Chief Complaint: Wound/Laceration Stated Complaint: finger lac Time Seen by Provider: 05/13/22 18:34 Source: patient, RN notes reviewed Mode of arrival: ambulatory Limitations: no limitations - History of Present Illness Initial Comments: This is a [id number] 31-year-old male [facility] of a laceration to his left thumb which occurred about one hour prior to arrival when he is working on his vehicle. She cut it on a metallic portion of a winch. Last tetanus is unknown. Patient has no immunosuppression. No other injuries. No functional parent. No distal paresthesias. No distal or proximal injuries. Denies any significant pain No headache, no fever or chills, no changes in vision or hearing, no sore throat or difficulty with speech, no neck pain, no chest pain or shortness of breath, no abdominal pain, no nausea or vomiting, no changes in urination or bowel movements, no numbness or tingling, no extremity pain, no skin rashes or lesions. Past medical, surgical, social, and family history reviewed. - Related Data Previous Rx's Medication Instructions Recorded Melatonin 10 mg PO HS 30 Days tablet 02/16/22 Nicotine 14Mg/24Hr Patch [Habitrol] 1 patch TRANSDERM DAILY 14 Days 02/16/22 patch Paliperidone IM [Invega Sustenna] 156 mg IM ONCE #1 each 02/16/22 Paliperidone Palmitate [Invega 117 mg IM QMONTHLY #1 each 02/16/22 Sustenna] Paliperidone [Invega] 6 mg PO HS 4 Days 02/16/22 Allergies Allergy/AdvReac Type Severity Reaction Status Date / Time amoxicillin Allergy Unknown Verified 05/13/22 18:23 Penicillins Allergy Unknown Verified 05/13/22 18:23 tomato Allergy Itching Verified 05/13/22 18:23 Review of Systems ROS Statement: Those systems with pertinent positive or pertinent negative responses have been documented in the HPI. ROS Other: All systems not noted in ROS Statement are negative. Past Medical History Past Medical History: Asthma History of Any Multi-Drug Resistant Organisms: None Reported Past Surgical History: No Surgical Hx Reported Past Psychological History: Bipolar, Schizophrenia Smoking Status: Current every day smoker Past Alcohol Use History: Occasional Past Drug Use History: Marijuana - Past Family History Family Family Medical History: No Reported History General Exam Limitations: no limitations General appearance: alert, in no apparent distress Head exam: Present: atraumatic, normocephalic, normal inspection Eye exam: Present: PERRL Neck exam: Present: normal inspection Respiratory exam: Present: normal lung sounds bilaterally. Absent: respiratory distress, wheezes, rales, rhonchi, stridor Cardiovascular Exam: Present: regular rate, normal rhythm, normal heart sounds. Absent: systolic murmur, diastolic murmur, rubs, gallop, clicks GI/Abdominal exam: Present: soft. Absent: tenderness Extremities exam: Present: full ROM, normal capillary refill, other (Has a superficial laceration overlying the extensor aspect of the right thumb. Involves the dermis only. No tendon involvement. Full tendon strength with flexion and extension versus resistance. Distal sensation intact. Normal capillary refill.). Absent: tenderness (No evidence of foreign body) Course Vital Signs 05/13/22 18:21 Temperature 98 F Pulse Rate 69 Respiratory 16 Rate Blood Pressure 128/71 O2 Sat by Pulse 98 Oximetry Procedures - Laceration Laceration #1 Consent Obtained: verbal consent Indication: laceration Site: upper extremity (Right thumb extensor aspect) Size (cm): 3 Description: linear Depth: simple, single layer Pre-repair: wound explored, irrigated extensively, deep structures intact Size of Sutures: other (Tissue adhesive) Patient Tolerated Procedure: well, no complications Additional Comments: Topical anesthesia with let solution Medical Decision Making - Medical Decision Making Counseled the patient signs and symptoms of infection. Counseled on wound care. Tetanus was updated. Patient voiced understanding. Patient was told to return to the ER for any signs or symptoms worsen. Told to return immediately if any other problems arise. All questions answered. Treatment plan discussed. Patient in agreement Every effort has been made to ensure accuracy of this dictation. However, due to the limitations of electronic medical records and dictation devices, errors in charting still occur. Raimann Machine Operator Dr. Martinez Disposition Clinical Impression: Laceration of right thumb without complication Disposition: HOME SELF-CARE Condition: Good Instructions (If sedation given, give patient instructions): Skin Adhesive Care (ED) Additional Instructions: Follow-up with your regular physician as directed. Return to the ER immediately if any symptoms worsen, new symptoms arise, or any other problems develop. Is patient prescribed a controlled substance at d/c from ED?: No Referrals: None,Stated [Primary Care Provider] - 1-2 days Time of Disposition: 19:14
== END 2022-05-13 19:30 | disposition home or self-care (01) ==
LOC: EC 17:37
DX: S61.011A Laceration without foreign body of right thumb without damage to nail, initial encounter (principal); Z23 Encounter for immunization; J45.909 Unspecified asthma, uncomplicated; F31.9 Bipolar disorder, unspecified; F20.9 Schizophrenia, unspecified; F17.200 Nicotine dependence, unspecified, uncomplicated; F12.90 Cannabis use, unspecified, uncomplicated; Z72.89 Other problems related to lifestyle; Z88.0 Allergy status to penicillin; Z88.1 Allergy status to other antibiotic agents; Z91.018 Allergy to other foods; W26.8XXA Contact with other sharp object(s), not elsewhere classified, initial encounter; Y99.0 Civilian activity done for income or pay; Y92.69 Other specified industrial and construction area as the place of occurrence of the external cause
CPT/HCPCS: 12002; 90471; 90715; 99283

== ENCOUNTER 2023-03-25 14:41 | Inpatient (IN) | payer MEDICAID, OTHER ==
--- NOTE | 2023-03-25 15:18 | ED ---
General Adult HPI - General Chief complaint: Psychiatric Symptoms Stated complaint: Mental Health Time Seen by Provider: 03/25/23 15:02 Source: patient, family, RN notes reviewed Mode of arrival: ambulatory Limitations: no limitations - History of Present Illness Initial comments: Patient is a pleasant 32-year-old male presenting to the emergency department with family with concerns for mental illness. Patient has been off his medications for schizophrenia for the past 2 months. Patient admits to having racing thoughts and difficulty concentrating. Patient denies suicidal or homicidal thoughts. Patient is unable to state if he is drinking and eating normally. Patient admits to marijuana use. No other drug use. - Related Data Home Medications Medication Instructions Recorded Confirmed No Known Home Medications 03/25/23 03/25/23 Allergies Allergy/AdvReac Type Severity Reaction Status Date / Time amoxicillin Allergy Unknown Verified 03/25/23 15:51 codeine Allergy Unknown Verified 03/25/23 15:51 Childhood Penicillins Allergy Unknown Verified 03/25/23 15:51 tomato Allergy Itching Verified 03/25/23 15:51 Review of Systems ROS Statement: Those systems with pertinent positive or pertinent negative responses have been documented in the HPI. ROS Other: All systems not noted in ROS Statement are negative. Constitutional: Denies: fever Eyes: Denies: eye pain ENT: Denies: ear pain Respiratory: Denies: cough Cardiovascular: Denies: chest pain Gastrointestinal: Denies: abdominal pain Genitourinary: Denies: urgency Psychiatric: Reports: as per HPI Past Medical History Past Medical History: Asthma History of Any Multi-Drug Resistant Organisms: None Reported Past Surgical History: No Surgical Hx Reported Past Psychological History: Bipolar, Schizophrenia Smoking Status: Current every day smoker Past Alcohol Use History: Occasional Past Drug Use History: Marijuana - Past Family History Family Family Medical History: No Reported History General Exam Limitations: no limitations General appearance: alert, in no apparent distress, other (Patient staring and rocking in the bed) Head exam: Present: atraumatic Eye exam: Present: normal appearance, PERRL Neck exam: Present: normal inspection Respiratory exam: Present: normal lung sounds bilaterally Cardiovascular Exam: Present: regular rate, normal rhythm GI/Abdominal exam: Present: soft. Absent: tenderness Extremities exam: Present: normal inspection Neurological exam: Present: alert Expanded Focused psych exam: Present: restlessness, flight of ideas Skin exam: Present: normal color Course Vital Signs 03/25/23 14:51 Temperature 97.6 F Pulse Rate 88 Respiratory 20 Rate Blood Pressure 145/93 O2 Sat by Pulse 98 Oximetry Medical Decision Making - Medical Decision Making Was pt. sent in by a medical professional or institution (BRANDO Florentino, VEHICLE PAINTER, urgent care, hospital, or longterm...) When possible be specific @ -No Did you speak to anyone other than the patient for history (EMS, parent, family, police, friend...)? What history was obtained from this source @ -Family is present and does help provide history including patient been off his medications. Did you review nursing and triage notes (agree or disagree)? Why? @ -I reviewed and agree with nursing and triage notes Were old charts reviewed (outside hosp., previous admission, EMS record, old EKG, old radiological studies, urgent care reports/EKG's, longterm records)? Report findings @ -No old charts were reviewed Differential Diagnosis (chest pain, altered mental status, abdominal pain women, abdominal pain men, vaginal bleeding, weakness, fever, dyspnea, syncope, headache, dizziness, GI bleed, back pain, seizure, CVA, palpatations, mental health)? @ -MDM differential mental health EKG interpreted by me (3pts min.). @ -As above X-rays interpreted by me (1pt min.). @ -None done CT interpreted by me (1pt min.). @ -None done U/S interpreted by me (1pt. min.). @ -None done What testing was considered but not performed or refused? (CT, X-rays, U/S, labs)? Why? @ -None What meds were considered but not given or refused? Why? @ -None Did you discuss the management of the patient with other professionals (professionals i.e. BRANDO Florentino, VEHICLE PAINTER, lab, RT, psych nurse, certified social workers in health care, mining detail draftsperson, teacher, flight communications officer, case preparer and liner)? Give summary @ -Case was discussed mental health nurse who will have patient admitted after discussed with psychiatrist. Was smoking cessation discussed for >3mins.? @ -No Was critical care preformed (if so, how long)? @ -No Were there social determinants of health that impacted care today? How? (Homelessness, low income, unemployed, alcoholism, drug addiction, transportation, low edu. Level, literacy, decrease access to med. care, m[facility], rehab)? @ -No Was there de-escalation of care discussed even if they declined (Discuss DNR or withdrawal of care, Hospice)? DNR status @ -No What co-morbidities impacted this encounter? (DM, HTN, Smoking, COPD, CAD, Cancer, CVA, ARF, Chemo, Hep., AIDS, mental health diagnosis, sleep apnea, morbid obesity)? @ -None Was patient admitted / discharged? Hospital course, mention meds given and route, prescriptions, significant lab abnormalities, going to OR and other pertinent info. @ -Patient will be admitted to psychiatric floor. Positive clinical certificate completed. Undiagnosed new problem with uncertain prognosis? @ -No Drug Therapy requiring intensive monitoring for toxicity (Heparin, Nitro, Insulin, Cardizem)? @ -No Were any procedures done? @ -No Diagnosis/symptom? @ -Acute psychosis Acute, or Chronic, or Acute on Chronic? @ -Acute Uncomplicated (without systemic symptoms) or Complicated (systemic symptoms)? @ -default Side effects of treatment? @ -No Exacerbation, Progression, or Severe Exacerbation? @ -No Poses a threat to life or bodily function? How? (Chest pain, [place], [place], pneumonia, PE, COPD, DKA, ARF, appy, cholecystitis, CVA, Diverticulitis, Homicidal, Suici shirley, threat to staff... and all critical care pts) @ -No Disposition Clinical Impression: Acute psychosis Disposition: TRANSFER TO PSYCH HOSP/UNIT Is patient prescribed a controlled substance at d/c from ED?: No Referrals: None,Stated [Primary Care Provider] - 1-2 days Time of Disposition: 17:46
[2023-03-25] MEDS ORDERED: LORazepam 1 MG TAB PO STA (18:59)
[2023-03-25] MEDS ORDERED: ZIPRASIDONE 20 MG VIAL IM STA (21:51)
[2023-03-26] MEDS ORDERED: LORazepam 2 MG/ML INJ IM PRN
[2023-03-26] MEDS ORDERED: LORazepam 1 MG TAB PO PRN
[2023-03-26] MEDS ORDERED: IBUPROFEN 600 MG TAB PO PRN
[2023-03-26] MEDS ORDERED: ACETAMINOPHEN TAB 325 MG TAB PO PRN
[2023-03-26] MEDS ORDERED: MAG HYDROX/AL HYDROX/SIMETH 30 ML CUP PO PRN
[2023-03-26] MEDS ORDERED: HALOPERIDOL LACTATE 5 MG/ML 1 ML VIAL IM PRN
[2023-03-26] MEDS ORDERED: haloperidoL 5 MG TAB PO PRN
[2023-03-26] MEDS: NICOTINE 14MG/24HR PATCH TRANSDERM SCH (08:28)
[2023-03-26] MEDS ORDERED: MAGNESIUM HYDROXIDE 2,400 MG/30 ML CUP PO PRN (09:00)
[2023-03-26] MEDS: risperiDONE 1 MG TAB PO SCH ×2 (10:41→20:52)
--- NOTE | 2023-03-26 11:38 | P.HP ---
Psychiatric H&P - . H&P Date: 03/26/23 History & Physical: Allergies Allergy/AdvReac Type Severity Reaction Status Date / Time amoxicillin Allergy Unknown Verified 03/26/23 00:20 codeine Allergy Unknown Verified 03/26/23 00:20 Childhood Penicillins Allergy Unknown Verified 03/26/23 00:20 tomato Allergy Itching Verified 03/26/23 00:20 Vital Signs Temp 97.7 F 03/25/23 23:23 Pulse 97 03/25/23 23:23 Resp 16 03/25/23 23:23 BP 147/98 03/25/23 23:23 Pulse Ox 97 03/25/23 23:23 FiO2 Intake & Output 03/25/23 03/26/23 03/26/23 18:59 06:59 18:59 Weight 68.039 kg 68.1 kg Laboratory Last Values Coronavirus (PCR) Not Detected (Not Detectd) 03/25/23 22:09 03/26/23 10:17 IDENTIFYING DATA: Patient is a single, employed, 32-year-old male, currently lives with his uncle in a house, he has 2 kids, he collects SSI. HPI: Patient presented to the hospital on a petition by his aunt for delusions and also concerns about his bizarre behaviors. Patient has a history of schizophrenia and was previously on Invega Sustenna long-acting injection, last admitted to the mental health unit one year ago. Patient is a patient at [facility] however has not been following up. Patient was seen today after being admitted involuntarily to the mental health unit and was able to speak a caption writer. Patient states that he has "stopped taking medications a few months ago" and was fairly concrete in his answers. He states that he used to be on Invega Sustenna however his last dose of that was several months ago. He claims that he was feeling "healthier and better" and states that he was "not trippin anymore" and wanted to get off his meds. he states that recently hes been "tripping again" and when asked to desrcibe this he stated that he started feeling worse and feeling paranoid. He claims that he has not been following up with [facility] and forgot to who he was seen there. He claims that his aunt Marissa met to the hospital. He was fairly irritable at times and also was complaining of feeling anxious and having mood swings. He claims that he is also hearing voices however cannot describe what they are and states that they are becoming more frequent and distressing. States that his sleep is poor, claims that his appetite is on and off. When caption writer attempted to speak to patient about the legal process and being involuntarily admitted, patient began being upset and walked away from caption writer in the middle of the conversation and went to the phones to call his aunt. At this time is denying any suicidal or homicidal ideations intent or plan, denying any visual hallucinations. patient claims that he smokes cigarettes daily, smokes marijuana occasionally. denies any other rec drug use. PAST PSYCHIATRIC HISTORY: Patient states that he has been previously diagnosed with schizophrenia and cannabis use disorder. Patient is only able to recall being previously prescribed invega and trazodone and was last perscribed invega sustenna when he was last discharged from the [facility]. The patient was last admitted on to the psychiatric unit 1 year ago. He is currently open with [facility] however has missed his appointments and injections. Patient denies any history of suicide attempts in the past. PMH: Asthma ALLERGIES: Amoxicillin, penicillin, tomato CHEMICAL DEPENDENCY HISTORY: as per HPI FAMILY PSYCHIATRIC/SUBSTANCE USE HISTORY: Denies SOCIAL HISTORY: Patient was born and raised in [place], [place]. He was never . He reports he has 2 sons.He is currently unemployed and collecting SSI. He lives with his uncle. Patient was in special education. MENTAL STATUS EXAM: General Appearance: Patient appears to be thin, stated age is alert, directable, and attempts to cooperate. irritable at timesPatient appears to have poor hygiene and grooming. Behavior: Patient is seated without any agitated behavior. Motor activity is elevated. irritable Speech: Patient's speech is fluent and nonpressured. Spontaneous Mood/Affect: Patient reports their mood is "not good" Affect is congruent and constricted Suicidality/Homicidality: Patient endorses suicidal ideation but denies any homicidal ideation. Perceptions: Patient endorses both auditory and visual hallucinations. Though content/process: Patient is tangential and rambles at times. [place], poverty of content. suspiciousness Memory and concentration: AOX3, grossly intact for the purposes of this session. Concentration appears to be grossly poor. Judgment and insight: Chronically poor STRENGTHS/WEAKNESSES: Strength is that the patient is currently employed, is open with outpatient psychiatric services, and appears to have supportive family. Weakness is that patient engages in frequent marijuana use and has significant mental illness. INTELLECT: Below average IMPRESSIONS: Schizophrenia non compliance with medications Cannabis use disorder Nicotine dependence PLAN: -Patient is admitted under involuntary status to [facility]HU for stabilization of psychiatric symptoms and safety. Patient did not sign adult voluntary form and medication consent and is placed in patient's chart. second cert completed and will be faxed to courts. -Medications : riseprdal PO 1 mg BID for psychosis, plan will be to transition patient onto DAILY prior to discharge to ensure compliance. -Ativan and Haldol PRN for agitation/aggression -Patient was counselled on substance abuse and desired to cut back on use -Patient was informed of the risks, benefits and side effects of the medication and patient verbally consented to taking the medications. Patient signed med consent form and was placed in chart. -Internal Medicine consult to perform medical evaluation and physical. -NRT - nicotine patch -SW on board for discharge planning. Encourage patient to participate in groups to work on coping skills. will wait on hearing and deferral date 03/26/23 10:40 03/26/23 11:34
--- NOTE | 2023-03-26 13:29 | P.HPMEDMHU ---
History of Present Illness H&P Date: 03/26/23 Patient is a 32-year-old male with no past medical history who presents on petition for delusions and bizarre behaviors. Currently hospitalized in the [facility]. Patient seen and examined at bedside. He denies any recent cough, cold, fever, flu, nausea, vomiting, diarrhea, constipation. He reports he is unsure why he is here but he is very upset and angry. He denies seeing a family doctor and states he has no chronic medical conditions as does not like doctors. Vital signs reviewed General: nontoxic, no distress, appears at stated age Derm: warm, dry Eyes: EOMI, no lid lag, anicteric sclera, pupils equal round reactive to light ENT: Nose and ears atraumatic, no thrush, no pharyngeal erythema Cardiovascular: S1S2 reg, no murmur, no edema bilateral Lungs: clear to auscultation bilateral, no rhonchi, no rales, no wheeze, no accessory muscle use Ext: no gross muscle atrophy, no contractures Neuro: CN II-XII grossly intact, no focal neuro deficits Psych: Alert, oriented, appropriate affect Assessment/Plan: Cannabis use -cessation Nicotine dependency -Nicotine patch 21 g - cessation Schizophrenia -Your psych management - awiat CBC.CMP, and TSH Data Review: Vital signs reviewed temperature 97.7, pulse 97, respirations 16, blood pressure 147/98, O2 sat 97% on room air Thank you for allowing us to participate in the care of this pleasant patient. Do not hesitate to contact us with questions. Someone can be reached from the [facility] hospitalist group all hours of the day at [phone] or via Video Bl[employer]. This dictation was prepared using [employer] voice recognition software. Though every attempt is made to correct errors during dictation some may still exist. Past Medical History Past Medical History: Asthma History of Any Multi-Drug Resistant Organisms: None Reported Past Surgical History: No Surgical Hx Reported Past Psychological History: Bipolar, Schizophrenia Smoking Status: Current every day smoker Past Alcohol Use History: None Reported Past Drug Use History: Marijuana - Past Family History Family Family Medical History: No Reported History Medications and Allergies Home Medications Medication Instructions Recorded Confirmed Type No Known Home Medications 03/25/23 03/25/23 History Allergies Allergy/AdvReac Type Severity Reaction Status Date / Time amoxicillin Allergy Unknown Verified 03/26/23 00:20 codeine Allergy Unknown Verified 03/26/23 00:20 Childhood Penicillins Allergy Unknown Verified 03/26/23 00:20 tomato Allergy Itching Verified 03/26/23 00:20 Physical Exam Osteopathic Statement: *. No significant issues noted on an osteopathic structural exam other than those noted in the History and Physical/Consult. Vitals: Vital Signs Temp Pulse Pulse Resp BP BP Pulse Ox 03/25/23 23:23 97.7 F 97 16 147/98 97 03/25/23 14:51 97.6 F 88 20 145/93 98 Intake and Output 03/25/23 03/26/23 03/26/23 22:59 06:59 14:59 Other: Weight 68.1 kg Cranial Nerve Examination - Cranial Nerves Cranial Nerve II- Optic: Intact Cranial Nerve III- Oculomotor: Intact Cranial Nerve IV- Trochlear: Intact Cranial Nerve V- Trigeminal: Intact Cranial Nerve - Abducens: Intact Cranial Nerve VII- Facial: Intact Cranial Nerve VIII- Auditory: Intact Cranial Nerve IX- Glossopharyngeal: Intact Cranial Nerve X- Vagus: Intact Cranial Nerve XI- Accessory: Intact Cranial Nerve XII- Hypoglossal: Intact Thrombosis Risk Factor Assmnt - Choose All That Apply Any of the Below Risk Factors Present?: No Other Risk Factors: No Other congenital or acquired thrombophilia - If yes, enter type in comment: No Thrombosis Risk Factor Assessment Level: Very Low Risk
[2023-03-26] MEDS ORDERED: BACITRACIN OINT 1 EACH PACKET TOPICAL ONE (20:17)
[2023-03-27] MEDS: risperiDONE 1 MG TAB PO SCH (08:40)
[2023-03-27] MEDS ORDERED: traZODone HCL 50 MG TAB PO PRN (10:06)
[2023-03-27] MEDS: NICOTINE 14MG/24HR PATCH TRANSDERM SCH (10:19)
--- NOTE | 2023-03-27 10:45 | P.PN ---
Progress Note - Text Progress Note Date: 03/27/23 Interval history: Patient was seen today sitting in a group. He states that he felt "pretty fun ny" this morning and states that he was also confused. He claims that he woke up and he did not know where he was. He states that other than that he is tolerating the medications fairly well however continues to want to be switched on to long-acting injection instead. We spoke more about the court process and he states that the eyelet punch operator supposed to see him today. He claims that he may get overwhelmed however sports writer explained to him what the eyelet punch operator is therefore and the deferral process which it sounds like he wants to defer. He claims that his mood and anxiety are improving. Claims that the voices have been improving as well, less distressing for him. States that he did not sleep well last night and we spoke about other options including trazodone as a when necessary which she is okay with. Claims that he has been trying to go to groups, continues to have very limited insight and judgment. He is denying any suicidal or homicidal ideations intent or plan. Patient has been taking the medications. Mental status examination: General Appearance: Patient appears to be thin, stated age is alert, directable, and attempts to cooperate. less irritable. Patient appears to have mildly improving hygiene and grooming. Behavior: Patient is seated without any agitated behavior. Motor activity is improving, more cooperative Speech: Patient's speech is fluent and nonpressured. Spontaneous Mood/Affect: Patient reports their mood is "ok" Affect is congruent and constricted Suicidality/Homicidality: Patient endorses suicidal ideation but denies any homicidal ideation. Perceptions: Patient endorses both auditory and visual hallucinations. Though content/process: Patient rambles at times. [place], poverty of content. less suspiciousness Memory and concentration: AOX3, grossly intact for the purposes of this session. Concentration improving mildly Judgment and insight: Chronically poor, improving mildly IMPRESSIONS: Schizophrenia non compliance with medications Cannabis use disorder Nicotine dependence PLAN: -Patient is admitted under involuntary status to [facility] for stabilization of psychiatric symptoms and safety. Patient did not sign adult voluntary form and medication consent and is placed in patient's chart. second cert completed and will be faxed to courts. -Medications : added trazodone 50 mg qhs prn for sleep, change riseprdal PO 2 mg QHS for psychosis, plan will be to transition patient onto DAILY prior to discharge to ensure compliance. likely give invega sustenna loading dose tomorrow, he was previously on lower monthly maintenance dose and did well, 117 mg IM. -Ativan and Haldol PRN for agitation/aggression -NRT - nicotine patch -SW on board for discharge planning. Encourage patient to participate in groups to work on coping skills. will wait on hearing and deferral date. possible discharge on saturday.
[2023-03-27 11:36] LABS: Basophils # (A) 0.1 k/uL (0-0.2); Basophils % (A) 1 %; Eosinophils # (A) 0.2 k/uL (0-0.7); Eosinophils % (A) 2 %; HCT 44.7 % (39.0-53.0); Lymphocytes # (A) 1.9 k/uL (1.0-4.8); Lymphocytes % (A) 21 %; MCH 30.8 pg (25.0-35.0); MCHC 33.6 g/dL (31.0-37.0); MCV 91.6 fL (80.0-100.0); Mean Platelet Volume 8.1; Monocytes # (A) 0.8 k/uL (0-1.0); Monocytes % (A) 9 %; Neutrophils % (A) 66 %; Platelet Count 180 k/uL (150-450); RBC 4.88 m/uL (4.30-5.90); RDW 12.8 % (11.5-15.5); WBC 9.2 k/uL (3.8-10.6)
[2023-03-27 11:59] LABS: ALT 34 U/L (4-49); AST 67 U/L (17-59); African American GFR (CKD) >90 (>60 ml/min/1.73 sqM); Albumin 4.5 g/dL (3.5-5.0); Alkaline Phosphatase 96 U/L (38-126); Anion Gap 11 mmol/L; Blood Urea Nitrogen 17 mg/dL (9-20); Calcium 8.8 mg/dL (8.4-10.2); Carbon Dioxide 26 mmol/L (22-30); Chloride 102 mmol/L (98-107); Glucose 77 mg/dL (74-99); Non-African American GFR(CKD) 85 (>60 ml/min/1.73 sqM); Potassium 3.5 mmol/L (3.5-5.1); Sodium 139 mmol/L (137-145); Total Bilirubin 0.9 mg/dL (0.2-1.3); Total Protein 7.3 g/dL (6.3-8.2)
[2023-03-27] MEDS: risperiDONE 2 MG TAB PO SCH (20:25)
[2023-03-27 22:51] LABS: Chol/HDL Ratio 3.69 Ratio; LDL Cholesterol,Calculated 48.8 mg/dL (0.0-131.0)
[2023-03-28] MEDS: NICOTINE 14MG/24HR PATCH TRANSDERM SCH (08:52)
[2023-03-28] MEDS ORDERED: PALIPERIDONE IM 234 MG/1.5 ML SYG IM STA (09:34)
[2023-03-28] MEDS: risperiDONE 2 MG TAB PO SCH (20:15)
[2023-03-29 05:50] VITALS: BP 121/74; PULSE 84; RESP 16; TEMP 98
[2023-03-29] MEDS: NICOTINE 14MG/24HR PATCH TRANSDERM SCH (09:20)
--- NOTE | 2023-03-29 10:29 | P.DS ---
Providers Date of admission: 03/25/23 22:52 Expected date of discharge: 03/29/23 Attending physician: John Gunn MD Consults: 03/25/23 23:15 Consult Physician Routine Consulting Provider: Deepa Physician Consult Reason/Comments: H&P and medical Do you want consulting provider notified?: Yes Primary care physician: Stated None - Discharge Diagnosis(es) (1) Schizophrenia Current Visit: Yes Status: Acute Priority: High (2) Non compliance w medication regimen Current Visit: Yes Status: Acute Priority: High (3) Cannabis use disorder Current Visit: Yes Status: Acute Priority: Medium (4) Nicotine dependence Current Visit: Yes Status: Acute Priority: Low Hospital Course: Admission HPI: Admission note was completed by chief writer "Patient is a single, employed, 32-year-old male, currently lives with his uncle in a house, he has 2 kids, he collects SSI. Patient presented to the hospital on a petition by his aunt for delusions and also concerns about his bizarre behaviors. Patient has a history of schizophrenia and was previously on Invega Sustenna long-acting injection, last admitted to the mental health unit one year ago. Patient is a patient at [facility] however has not been following up. Patient was seen today after being admitted involuntarily to the mental health unit and was able to speak a chief writer. Patient states that he has "stopped taking medications a few months ago" and was fairly concrete in his answers. He states that he used to be on Invega Sustenna however his last dose of that was several months ago. He claims that he was feeling "healthier and better" and states that he was "not trippin anymore" and wanted to get off his meds. he states that recently hes been "tripping again" and when asked to desrcibe this he stated that he started feeling worse and feeling paranoid. He claims that he has not been following up with [facility] and forgot to who he was seen there. He claims that his aunt Marissa met to the hospital. He was fairly irritable at times and also was complaining of feeling anxious and having mood swings. He claims that he is also hearing voices however cannot describe what they are and states that they are becoming more frequent and distressing. States that his sleep is poor, claims that his appetite is on and off. When chief writer attempted to speak to patient about the legal process and being involuntarily admitted, patient began being upset and walked away from chief writer in the middle of the conversation and went to the phones to call his aunt. At this time is denying any suicidal or homicidal ideations intent or plan, denying any visual hallucinations. patient claims that he smokes cigarettes daily, smokes marijuana occasionally. denies any other rec drug use." Hospital course: Upon admission to the unit patient was admitted involuntarily on a petition and certificate and a second certificate was completed and faxed with the courts. Patient ended up signing a deferral with the sample color maker and agreeing to treatment. Patient was initially bizarre irritable however with treatment and time he got along well with other patients on the unit and followed unit protocol. Patient was compliant with the medications and denied any side effects throughout hospital course. Patient was started on Risperdal and increased up to a dose of 2 mg daily at bedtime for psychosis, trazodone 50 mg daily at bedtime when necessary for sleep. Patient was transitioned onto DAILY invega sustenna to ensure compliance and given 234 mg IM on 03/28 and next dose of 156 mg IM will be due on 04/04 and monthly maintenance dose of 117mg IM will be due on 04/25. Patient spoke of his stressors and engaged in therapy both group and individual. Patient was also seen by medical team for history and physical exam. Throughout the course of the hospitalization patient gradually improved with regards to mood, anxiety, psychosis, paranoia, sleep and became more future oriented with improved insight and judgment. On the day of discharge patient denied any suicidal or homicidal ideations intent or plan denied any auditory or visual hallucinations. Patient endorsed wanting to live for his kids and to see his mother. The patient denied any access to guns or weapons. Patient denied any paranoia and did not endorse any delusions. Patient does not have a significant history of substance abuse and was counseled on abstaining from all substances including alcohol and marijuana. Patient was also counseled on the medications and need for regular compliance and was encouraged to follow-up with their outpatient appointment for mental health and also for primary care. Prior to discharge a family meeting will be arranged by manager social services to answer any questions and ensure safety upon discharge. Patient will be discharged back home with [facility] follow-up as he is currently on a deferral. Mental status exam: General Appearance: Patient appears to be thin, longer hair, poor dentition, stated age is alert, pleasant, and cooperative. Patient is in no acute distress and has improved hygiene and grooming Behavior: Patient is calmly seated without any agitated behavior. Speech: Patient's speech is fluent and nonpressured. Mood/Affect: Patient reports their mood is "better", affect is congruent and euthymic. Suicidality/Homicidality: Patient denies having any suicidal or homicidal ideation intent or plan. Perceptions: Patient denies any auditory or visual hallucinations. Though content/process: There is no evidence of any delusional thought content and thought process is linear and goal-directed. more future oriented Memory and concentration: AOX3, grossly intact for the purposes of this session. Can spell "WORLD" backwards correctly. Judgment and insight: Chronically limited, improved with guarded prognosis Impression: Schizophrenia Noncompliance with medication regimen Cannabis use disorder Nicotine dependence Plan: -Continue with discharge today as patient has improved and stabilized psychiatrically and is not currently an imminent threat to himself and/or others. Patient will remain at chronically elevated risk for harm to self and/or others due to his chronic mental illness -Continue medications: Risperdal by mouth was discontinued. Patient was given 234 mg IM on 03/28 and next dose of 156 mg IM will be due on 04/04 and monthly maintenance dose of 117mg IM will be due on 04/25. will be given a 2 week supply of trazodone 50 mg qhs prn for insomnia. -Patient was counseled on the need for medication compliance and appropriate follow-up at mental health and also primary care for medical issues. Patient verbalized understanding and agreed. -Social work to arrange for and conduct family meeting to ensure safety upon discharge and answer any questions/concerns. Social work also to arrange for patients follow up appointments with [facility] for psychiatric care along with follow up with primary care provider. -Patient counseled on abstaining from recreational drugs and marijuana and alcohol. Was informed/educated on the adverse effects on their physical and mental health. Patient verbally agreed and understood. -Patient was instructed to return to the hospital or seek immediate medical care if their psychiatric or medical symptoms do worsen or reoccur. Allergies Allergy/AdvReac Type Severity Reaction Status Date / Time amoxicillin Allergy Unknown Verified 03/26/23 00:20 codeine Allergy Unknown Verified 03/26/23 00:20 Childhood Penicillins Allergy Unknown Verified 03/26/23 00:20 tomato Allergy Itching Verified 03/26/23 00:20 Laboratory Results WBC 9.2 k/uL (3.8-10.6) 03/27/23 10:51 RBC 4.88 m/uL (4.30-5.90) 03/27/23 10:51 Hgb 15.0 gm/dL (13.0-17.5) 03/27/23 10:51 Hct 44.7 % (39.0-53.0) 03/27/23 10:51 MCV 91.6 fL (80.0-100.0) 03/27/23 10:51 MCH 30.8 pg (25.0-35.0) 03/27/23 10:51 MCHC 33.6 g/dL (31.0-37.0) 03/27/23 10:51 RDW 12.8 % (11.5-15.5) 03/27/23 10:51 Plt Count 180 k/uL (150-450) 03/27/23 10:51 MPV 8.1 03/27/23 10:51 Neutrophils % 66 % 03/27/23 10:51 Lymphocytes % 21 % 03/27/23 10:51 Monocytes % 9 % 03/27/23 10:51 Eosinophils % 2 % 03/27/23 10:51 Basophils % 1 % 03/27/23 10:51 Neutrophils # 6.0 k/uL (1.3-7.7) 03/27/23 10:51 Lymphocytes # 1.9 k/uL (1.0-4.8) 03/27/23 10:51 Monocytes # 0.8 k/uL (0-1.0) 03/27/23 10:51 Eosinophils # 0.2 k/uL (0-0.7) 03/27/23 10:51 Basophils # 0.1 k/uL (0-0.2) 03/27/23 10:51 Sodium 139 mmol/L (137-145) 03/27/23 10:51 Potassium 3.5 mmol/L (3.5-5.1) 03/27/23 10:51 Chloride 102 mmol/L (98-107) 03/27/23 10:51 Carbon Dioxide 26 mmol/L (22-30) 03/27/23 10:51 Anion Gap 11 mmol/L 03/27/23 10:51 BUN 17 mg/dL (9-20) 03/27/23 10:51 Creatinine 1.14 mg/dL (0.66-1.25) 03/27/23 10:51 Est GFR (CKD-EPI)AfAm >90 (>60 ml/min/1.73 sqM) 03/27/23 10:51 Est GFR (CKD-EPI)NonAf 85 (>60 ml/min/1.73 sqM) 03/27/23 10:51 Glucose 77 mg/dL (74-99) 03/27/23 10:[address] Glu mg/dL 105 mg/dL 03/27/23 10:51 Hemoglobin A1c 5.3 % (<=6.0) 03/27/23 10:51 Calcium 8.8 mg/dL (8.4-10.2) 03/27/23 10:51 Total Bilirubin 0.9 mg/dL (0.2-1.3) 03/27/23 10:51 AST 67 U/L (17-59) H 03/27/23 10:51 ALT 34 U/L (4-49) 03/27/23 10:51 Alkaline Phosphatase 96 U/L (38-126) 03/27/23 10:51 Total Protein 7.3 g/dL (6.3-8.2) 03/27/23 10:51 Albumin 4.5 g/dL (3.5-5.0) 03/27/23 10:51 Triglycerides 157.00 mg/dL (0.00-149.00) H 03/27/23 10:51 Cholesterol 110.00 mg/dL (0.00-200.00) 03/27/23 10:51 LDL Cholesterol, Calc 48.8 mg/dL (0.0-131.0) 03/27/23 10:51 VLDL Cholesterol, Calc 31.40 mg/dL (5.00-40.00) 03/27/23 10:51 HDL Cholesterol 29.80 mg/dL (40.00-60.00) L 03/27/23 10:51 Cholesterol/HDL Ratio 3.69 Ratio 03/27/23 10:51 TSH 1.670 mIU/L (0.465-4.680) 03/27/23 10:51 Coronavirus (PCR) Not Detected (Not Detectd) 03/25/23 22:09 Vital Signs Temp 98.0 F 03/29/23 03:00 Pulse 84 03/29/23 03:00 Resp 16 03/29/23 03:00 BP 121/74 03/29/23 03:00 Pulse Ox 95 03/29/23 03:00 FiO2 Patient Condition at Discharge: Stable Plan - Discharge Summary Discharge Rx Participant: Yes New Discharge Prescriptions: New traZODone HCL [Desyrel] 50 mg PO HS PRN 14 Days #14 tab PRN Reason: Insomnia Nicotine 14Mg/24Hr Patch [Habitrol] 1 patch TRANSDERM DAILY 14 Days #14 patch Paliperidone IM [Invega Sustenna] 156 mg IM ONCE #1 ml Paliperidone Palmitate [Invega Sustenna] 117 mg IM QMONTHLY #1 each Discharge Medication List Nicotine 14Mg/24Hr Patch [Habitrol] 1 patch TRANSDERM DAILY 14 Days #14 patch 03/29/23 [Rx] Paliperidone IM [Invega Sustenna] 156 mg IM ONCE #1 ml 03/29/23 [Rx] Paliperidone Palmitate [Invega Sustenna] 117 mg IM QMONTHLY #1 each 03/29/23 [Rx] traZODone HCL [Desyrel] 50 mg PO HS PRN 14 Days #14 tab 03/29/23 [Rx] Follow up Appointment(s)/Referral(s): None,Stated [Primary Care Provider] - 1-2 days Activity/Diet/Wound Care/Special Instructions: Avoid the use of street drugs and alcohol. Take all medications as prescribed. When you are in need of refills on your medications, please contact your medical provider and/or outpatient psychiatrist to have this done. Please go to scheduled outpatient appointments for aftercare treatment. If symptoms return or become worse, call the crisis line at and/or go to the nearest emergency room for evaluation. Discharge Disposition: HOME SELF-CARE
== END 2023-03-29 14:28 | disposition home or self-care (01) | DRG 750 ==
LOC: EC 14:41 → 3MHU 22:52
PROVIDERS: ADMIT Psychiatry & Neurology Psychiatry; ATTEND Psychiatry & Neurology Psychiatry
DX: F20.9 Schizophrenia, unspecified (principal); F12.10 Cannabis abuse, uncomplicated; F17.210 Nicotine dependence, cigarettes, uncomplicated; F31.9 Bipolar disorder, unspecified; F41.9 Anxiety disorder, unspecified; Z56.0 Unemployment, unspecified; Z79.899 Other long term (current) drug therapy; T43.506A Underdosing of unspecified antipsychotics and neuroleptics, initial encounter; Z91.128 Patient's intentional underdosing of medication regimen for other reason; Z71.89 Other specified counseling; Z88.5 Allergy status to narcotic agent; Z88.0 Allergy status to penicillin
CPT/HCPCS: 80053; 80061; 82075; 83036; 84443; 85025; 87635; 96372; 99285